=== PATIENT | male | born 1945 | race Caucasian/White ===

== ENCOUNTER 2016-09-12 03:51 | Inpatient (IN) | payer OTHER, MEDICARE ==
[~2016-09-12] VITALS: Ht 180.3 cm; Wt 60.8 kg
[2016-09-12] MEDS ORDERED: SODIUM CHLORIDE 0.9% FLUSH 5 ML FLUSH IV FLUSH PRN (04:15)
[2016-09-12] MEDS ORDERED: MYLASUS2 PO (04:19)
[2016-09-12] MEDS ORDERED: TYLE325T PO (04:19)
[2016-09-12] MEDS ORDERED: BISA10SU3 RECTAL (04:19)
[2016-09-12] MEDS ORDERED: DOCU100C PO (04:19)
[2016-09-12] MEDS ORDERED: AMLO5TAB2 PO (04:19)
[2016-09-12] MEDS ORDERED: XARE15TA PO (04:19)
[2016-09-12] MEDS ORDERED: ACET650S4 RECTAL (04:19)
[2016-09-12] MEDS ORDERED: NYST1000 SWISH-SWAL (04:19)
[2016-09-12] MEDS ORDERED: LISI10TA3 PO (04:19)
[2016-09-12] MEDS ORDERED: SIMV10TA PO (04:19)
[2016-09-12] MEDS ORDERED: FAMO1TAB37 PO (04:19)
[2016-09-12 04:33] VITALS: BP 143/82; PULSE 60; RESP 18; TEMP 97.6; O2SAT 97
[2016-09-12 04:44] LABS: BACTERIA, URINE FEW /hpf; BLOOD, URINE MOD (NEG); CALCIUM OXALATE CRYSTALS,URINE OCC /hpf; COMMENT (UR) CATH-CULTURE IND; CULTURE IF INDICATED CATH CULTURE IND; GLUCOSE,URINE NEG (NEG); HYALINE CAST, URINE 2 /lpf (RARE); KETONE, URINE NEG (NEG); MUCUS URINE FEW /lpf (OCC); NITRITE,URINE POS (NEG); RENAL EPITHELIAL CELLS 23 /hpf; URINE COLOR YELLOW (YELLW/STRAW)
[2016-09-12 04:45] LABS: AUTOMATED NEUTROPHIL # 8.1 TH/MM3 (1.8-7.7); BASOPHIL % 0.3 % (0.0-2.0); EOSINOPHIL # 0.2 TH/MM3 (0-0.4); EOSINOPHIL % 1.9 % (0.0-4.0); HEMATOCRIT 38.4 % (39.0-51.0); HEMO FLAGS DIFF FINAL; LYMPH % 12.8 % (9.0-44.0); LYMPHOCYTE # 1.4 TH/MM3 (1.0-4.8); MEAN CELL VOLUME 100.9 FL (80.0-100.0); MEAN CORPUSCULAR HEMOGLOBIN 35.2 PG (27.0-34.0); MEAN CORPUSCULAR HGB CONC 34.9 % (32.0-36.0); MONO % 11.2 % (0.0-8.0); NEUT % 73.8 % (16.0-70.0); PLATELET COUNT 263 TH/MM3 (150-450); RED BLOOD COUNT 3.81 MIL/MM3 (4.50-5.90); RED CELL DISTRIBUTION WIDTH 12.6 % (11.6-17.2)
[2016-09-12 04:51] LABS: APTT (PATIENT) 26.3 SEC (24.3-30.1); PROTHROMBIN TIME - PATIENT 10.6 SEC (9.8-11.6)
[2016-09-12 04:52] VITALS: RESP 18; O2SAT 100
--- NOTE | 2016-09-12 04:58 | RADRPT ---
EXAM DATE/TIME: 09/12/2016 04:24 [facility] COMPARISON: No previous studies available for comparison. INDICATIONS : Shortness of breath. MEDICAL HISTORY : None. SURGICAL HISTORY : None. ENCOUNTER: Initial ACUITY: 1 day PAIN SCORE: Non-responsive. LOCATION: Bilateral chest FINDINGS: A single view of the chest demonstrates the lungs to be symmetrically aerated without evidence of mas s, infiltrate or effusion. The cardiomediastinal contours are unremarkable. Osseous structures are intact. CONCLUSION: No acute disease. Antonio Root MD on September 12, 2016 at 4:56 Board Certified Radiologist. This report was verified electronically.
--- NOTE | 2016-09-12 05:12 | RADRPT ---
EXAM DATE/TIME: 09/12/2016 04:33 [facility] COMPARISON: No previous studies available for comparison. INDICATIONS : Altered mental status. RADIATION DOSE: 39.10 CTDIvol (mGy) MEDICAL HISTORY : SAH. SURGICAL HISTORY : Craniotomy. ENCOUNTER: Initial ACUITY: 1 day PAIN SCALE: Non-responsive LOCATION: cranial TECHNIQUE: Multiple contiguous axial images were obtained of the head. Using automated exposure control and adj ustment of the mA and/or kV according to patient size, radiation dose was kept as low as reasonably a chievable to obtain optimal diagnostic quality images. FINDINGS: CEREBRUM: The ventricles are normal for age. No evidence of midline shift, mass lesion, hemorrhage or acute in farction. There is a moderate size arachnoid cyst along the anterior right temporal lobe in the middl e fossa. There is a large area of decreased attenuation involving the right frontal and parietal lobe s. There are low-attenuation chronic subdural hygromas left greater than right. POSTERIOR FOSSA: The cerebellum and brainstem are intact. The 4th ventricle is midline. The cerebellopontine angle i s unremarkable. EXTRACRANIAL: The visualized portion of the orbits is intact. SKULL: The calvaria is intact. No evidence of skull fracture. CONCLUSION: 1. 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 2. Large area of decreased attenuation involving the right frontal and parietal lobes which are nonsp ecific but most characteristic of an area of encephalomalacia. Comparison with old outside studies wo uld be helpful. 3. 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 4. Status post right frontal craniotomy. Antonoi Root MD on September 12, 2016 at 5:07 Board Certified Radiologist. This report was verified electronically.
[2016-09-12] MEDS ORDERED: cefTRIAXone INJ 1,000 MG in SODIUM CHLORIDE 0.9% INJ 100 ML IV ONE (05:15)
[2016-09-12 05:20] LABS: ALT (GPT) 105 U/L (12-78); ANION GAP 4 MEQ/L (5-15); AST (GOT) 39 U/L (15-37); BICARBONATE 32.9 MEQ/L (21.0-32.0); BLOOD UREA NITROGEN 28 MG/DL (7-18); CHLORIDE 111 MEQ/L (98-107); GLOMERULAR FILTRATION RATE 149 ML/MIN (>89); POTASSIUM 3.6 MEQ/L (3.5-5.1); SODIUM (NA) 148 MEQ/L (136-145)
[2016-09-12 05:24] LABS: ALKALINE PHOSPHATASE 125 U/L (45-117); TOTAL BILIRUBIN ADULT 0.3 MG/DL (0.2-1.0)
[2016-09-12 05:31] LABS: CREATINE KINASE 40 U/L (39-308)
--- NOTE | 2016-09-12 05:43 | PD ---
HPI Chief Complaint: Altered Mental Status Time Seen by Provider: 04:15 Travel History International Travel<30 days: No Contact w/Intl Traveler<30days: No Traveled to known affect area: No History of Present Illness HPI Patient is a 71-year-old male with history of recent intracranial hemorrhage. He was seen at [facility] and was discharged to rehabilitation facility on Friday. He comes from the rehabilitation facility because they said his mental status is changed. Per documentation from [facility], patient is nonverbal. He does try to say a few words that are incomprehensible. Per he seems to be at his baseline mental status. She says though she has noticed some blood in his stool. Patient is unable to provide any history. [facility] Past Medical History Hypertension: Yes Medical other: Yes (INTRACRAINAL HEMORRHAGE) Past Surgical History Other Surgery: Yes (CRANIECTOMY 08/22, PEG TUBE 07/2016) Social History Alcohol Use: No Tobacco Use: No Substance Use: No Allergies-Medications (Allergen,Severity, Reaction): Coded Allergies: No Known Allergies (Unverified , 09/12/16) Reported Meds & Prescriptions Reported Meds & Active Scripts Active Reported Acetaminophen Supp (Acetaminophen) 650 Mg Supp 650 Mg RECTAL Q3HR PRN Mylanta Liq (Yuuwmdzo-Hodgxufkt-Oylarcqacay Liq) 200-200-20 Mg/5 Ml Susp 30 Ml PO Q4HR PRN Take between meals or as directed. Shake well. Maximum 120 ml/24 hrs. Tylenol (Acetaminophen) 325 Mg Tab 325 Mg PO Q4H PRN Bisacodyl Supp (Bisacodyl) 10 Mg Supp 10 Mg RECTAL DAILY PRN Nystatin Liq 100,000 unit/ml Susp 6 Ml SWISH-SWAL QID Pepcid (Famotidine) 20 Mg Tab 20 Mg PO BID Docusate Sodium 100 Mg Cap 100 Mg PO BID Amlodipine (Amlodipine Besylate) 5 Mg Tab 5 Mg PO BID Xarelto (Rivaroxaban) 15 Mg Tab 15 Mg PO DAILY Simvastatin 10 Mg Tab 10 Mg PO DAILY Lisinopril 10 Mg Tab 10 Mg PO DAILY Review of Systems ROS Limitations: Clinical Condition Physical Exam Narrative GENERAL: Awake and alert, but nonverbal, in no acute distress SKIN: Focused skin assessment warm/dry. HEAD: Atraumatic. Normocephalic. EYES: Pupils equal and round. No scleral icterus. ENT: Mucous membranes pink and moist. NECK: Trachea midline. No JVD. CARDIOVASCULAR: Regular rate and rhythm. No murmur appreciated. RESPIRATORY: No accessory muscle use. Clear to auscultation. Breath sounds equal bilaterally. GASTROINTESTINAL: Abdomen soft, non-tender, nondistended. Blood present in the rectum. MUSCULOSKELETAL: No obvious deformities. No clubbing. No cyanosis. No edema. NEUROLOGICAL: Awake and alert, nonverbal. Left-sided facial droop and left arm and leg flaccidity. Patient does seem to try and follow commands. Data Data Last Documented VS Orders Electrocardiogram (09/12/16 04:15) Complete Blood Count With Diff (09/12/16 04:15) Comprehensive Metabolic Panel (09/12/16 04:15) Creatine Kinase (Cpk) (09/12/16 04:15) Prothrombin Time / Inr (Pt) (09/12/16 04:15) Act Partial Throm Time (Ptt) (09/12/16 04:15) Troponin I (09/12/16 04:15) Urinalysis - C+S If Indicated (09/12/16 04:15) Ua Includes Microscopic (09/12/16 04:15) Chest, Single Ap (09/12/16 04:15) Ct Brain W/O Iv Contrast(Rout) (09/12/16 04:15) Blood Glucose (09/12/16 04:15) Ecg Monitoring (09/12/16 04:15) Iv Access Insert/Monitor (09/12/16 04:15) Oximetry (09/12/16 04:15) Sodium Chloride 0.9% Flush (Ns Flush) (09/12/16 04:15) Type And Screen (09/12/16 04:15) Urine Culture (09/12/16 04:18) Ceftriaxone Inj (Rocephin Inj) (09/12/16 05:15) Admit Order (Ed Use Only) (09/12/16 ) Vital Signs (Adult) Q4H (09/12/16 05:43) Activity Oob With Assistance (09/12/16 05:43) [employer] Pro[employer] / Telemetry .CONTINUOUS (09/12/16 05:43) Sodium Chloride 0.9% Flush (Ns Flush) (09/12/16 05:45) Sodium Chloride 0.9% Flush (Ns Flush) (09/12/16 09:00) Pt Request For Service (09/12/16 05:43) Case Management Consult (09/12/16 05:43) Naloxone Inj (Narcan Inj) (09/12/16 05:45) Labs Laboratory Tests Test 09/12/16 04:18 Prothrombin Time 10.6 SEC Prothromb Time International 1.0 RATIO Ratio Activated Partial 26.3 SEC Thromboplast Time Sodium Level 148 MEQ/L Potassium Level 3.6 MEQ/L Chloride Level 111 MEQ/L Carbon Dioxide Level 32.9 MEQ/L Anion Gap 4 MEQ/L Blood Urea Nitrogen 28 MG/DL Creatinine 0.54 MG/DL Estimat Glomerular Filtration 149 ML/MIN Rate Random Glucose 115 MG/DL Calcium Level 8.7 MG/DL Total Bilirubin 0.3 MG/DL Aspartate Amino Transf 39 U/L (AST/SGOT) Alanine Aminotransferase 105 U/L (ALT/SGPT) Alkaline Phosphatase 125 U/L Total Creatine Kinase 40 U/L Troponin I 0.09 NG/ML Total Protein 6.2 GM/DL Albumin 2.2 GM/DL White Blood Count 11.0 TH/MM3 Red Blood Count 3.81 MIL/MM3 Hemoglobin 13.4 GM/DL Hematocrit 38.4 % Mean Corpuscular Volume 100.9 FL Mean Corpuscular Hemoglobin 35.2 PG Mean Corpuscular Hemoglobin 34.9 % Concent Red Cell Distribution Width 12.6 % Platelet Count 263 TH/MM3 Mean Platelet Volume 9.8 FL Neutrophils (%) (Auto) 73.8 % Lymphocytes (%) (Auto) 12.8 % Monocytes (%) (Auto) 11.2 % Eosinophils (%) (Auto) 1.9 % Basophils (%) (Auto) 0.3 % Neutrophils # (Auto) 8.1 TH/MM3 Lymphocytes # (Auto) 1.4 TH/MM3 Monocytes # (Auto) 1.2 TH/MM3 Eosinophils # (Auto) 0.2 TH/MM3 Basophils # (Auto) 0.0 TH/MM3 CBC Comment DIFF FINAL Differential Comment Urine Color YELLOW Urine Turbidity HAZY Urine pH 6.0 Urine Specific [place] 1.018 Urine Protein 30 mg/dL Urine Glucose (UA) NEG mg/dL Urine Ketones NEG mg/dL Urine Occult Blood MOD Urine Nitrite POS Urine Bilirubin NEG Urine Urobilinogen LESS THAN 2.0 MG/DL Urine Leukocyte Esterase LARGE Urine RBC 51 /hpf Urine WBC /hpf Urine WBC Clumps MOD Urine Renal Epithelial Cells 23 /hpf Urine Calcium Oxalate Crystals OCC /hpf Urine Amorphous Sediment RARE Urine Bacteria FEW /hpf Urine Hyaline Casts 2 /lpf Urine Mucus FEW /lpf Microscopic Urinalysis Comment CATH-CULTURE IND [facility] Medical Decision Making Medical Screen Exam Complete: Yes Emergency Medical Condition: Yes Interpretation(s) ECG shows sinus tachycardia at 105, frequent PVCs. Differential Diagnosis UTI versus pneumonia versus GI bleed versus ICH Narrative Course Patient is a 71-year-old male comes in from his rehabilitation facility due to change in mental status. Patient is nonverbal. Exam shows bright red blood per rectum. IV established, labs sent. Troponin is mildly elevated to 0.09. Hemoglobin is normal at 13.4. Urinalysis is positive for UTI. Patient given Rocephin for UTI. Given Protonix. Will be admitted for further management. Patient is a DNR. Diagnosis Primary Impression: GI bleed Qualified Code: K92.2 - Gastrointestinal hemorrhage, unspecified gastrointestinal hemorrhage type Additional Impression: UTI (urinary tract infection) Qualified Code: N30.00 - Acute cystitis without hematuria Admitting Information Admitting Physician Requests: Admit Condition: Stable Catherine Ortega MD September 12, 2016 05:43 GI bleed Qualified Code: K92.2 - Gastrointestinal hemorrhage, unspecified gastrointestinal hemorrhage type Additional Impression: UTI (urinary tract infection) Qualified Code: N30.00 - Acute cystitis without hematuria Admitting Information Admitting Physician Requests: Admit Condition: Stable Catherine Ortega MD September 12, 2016 05:43
[2016-09-12] MEDS ORDERED: NALOXONE HCL 0.4 MG/ML AMP IV PRN (05:45)
[2016-09-12 06:22] LABS: HEMATOCRIT 38.5 % (39.0-51.0); REVIEW FLAG FINAL
[2016-09-12 07:00] VITALS: BP 140/80; PULSE 112; RESP 17; O2SAT 98
[2016-09-12] MEDS ORDERED: PANTOPRAZOLE INJ 80 MG in SODIUM CHLORIDE 0.9% INJ 35 ML IV ONE (07:00)
--- NOTE | 2016-09-12 07:07 | HHI.HP ---
[facility] Primary Care Physician Allison Lynn MD (Vipin) Admission Diagnosis UTI, GI bleed Diagnoses: Chief Complaint: not able to give proper hx Travel History International Travel<30 Days: No Contact w/Intl Traveler <30 Da: No Traveled to Known Affected Are: No History of Present Illness History from patient's at the bedside, ER physician, and review of medical records from [facility]. Patient himself is awake and alert but has significant expressive aphasia and not able to give history. reported that patient was sent from the [facility] because the nurse noted the patient was not speaking like the way he used to. He was not able to answer yes or no questions. He was not able to pronounce the name of the nurse. Apparently he was previously able to do all this. 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 this trouble with speech and total noncommunicative state was new to him. Patient stated that she did notice blood in his stool about 2 days ago as well. She stated that she was also noticing some sediments in his urine Stuart catheter and she happened to mention close to the nursing staff there. She denies any nausea or vomiting or fever. She stated patient was having diarrhea for the past few days as well. About 4-5 times a day. She is unsure of his stool color. Patient's reported that patient was at [facility] from August 13, 2016 to September 06, 2016. He was then discharged to [facility]. He was managed there for intracranial bleed. She found him in the house on the ground. It wasn't sure whether he had an intracranial bleed which led him to fall versus whether his fall led to intracranial bleed. He underwent herniotomy on to August 21, 2016. His hospitalization was complicated by pulmonary embolism and lower extremity DVT which she described as the clot in lung close to his heart with possible compromise to his heart. Possibly she is describing right heart strain. She reported that at that time, she was the one who noticed that patient was hypoxic to the 70s on room air, with tachycardia in 130s. He was not discharged on oxygen. She stated that he was doing well without oxygen there. At present while in emergency room, patient is saturating 97% on 3 L nasal cannular. Review of Systems ROS Limitations: Altered Mental Status, Speech Impaired Not able to obtain review of system at all Past Family Social History Past Medical History History of hypertension Recent intracranial bleed on August 13, 2016. Status post craniotomy on July. Pulmonary embolism, with DVT during July 2016 hospitalizationwith what sounds like right heart strain from 's description. Currently on anticoagulation with Xarelto. Chronic anticoagulation on Xarelto History of prostate cancer status post prostatectomy Past Surgical History Prostatectomy Reported Medications Patient's medications [facility] is [facility] Allergies: Coded Allergies: No Known Allergies (Unverified , 09/12/16) Family History Patient's father had a stroke. Mother had some kind of cancer. Social History Denies smoking/alcohol abuse/drug abuse. He used to drink alcohol socially. Physical Exam Vital Signs Vital Signs Date Time Temp Pulse Resp B/P Pulse Ox O2 Delivery O2 Flow Rate FiO2 09/12/16 04:52 18 100 09/12/16 04:42 59 18 100 09/12/16 04:33 97.6 60 18 143/82 97 Physical Exam GENERAL: This is a well-nourished, well-developed patient, in no apparent distress. SKIN: No rashes, ecchymoses or lesions. Cool and dry. HEAD: Atraumatic. Normocephalic. No temporal or scalp tenderness. EYES: Pupils equal round and reactive. no scleral icterus. No injection or drainage. ENT: Nose without bleeding, purulent drainage or septal hematoma. Airway patent. NECK: Trachea midline. No JVD or lymphadenopathy. Supple, nontender, no meningeal signs. CARDIOVASCULAR: Regular rate and rhythm without murmurs, gallops, or rubs. RESPIRATORY: Clear to auscultation. Breath sounds equal bilaterally. No wheezes , rales, or rhonchi. GASTROINTESTINAL: Abdomen soft tenderness at right upper quadrant area, nondistended. No guarding. MUSCULOSKELETAL: Extremities without clubbing, cyanosis, or edema. No calf tenderness. NEUROLOGICAL: Awake and alert. Expressive aphasia. Left upper extremity and left lower extremity paralysis 0 out of 5. Laboratory Laboratory Tests Test 09/12/16 09/12/16 04:18 06:12 White Blood Count 11.0 Red Blood Count 3.81 Hemoglobin 13.4 13.3 Hematocrit 38.4 38.5 Mean Corpuscular Volume 100.9 Mean Corpuscular Hemoglobin 35.2 Mean Corpuscular Hemoglobin 34.9 Concent Red Cell Distribution Width 12.6 Platelet Count 263 Mean Platelet Volume 9.8 Neutrophils (%) (Auto) 73.8 Lymphocytes (%) (Auto) 12.8 Monocytes (%) (Auto) 11.2 Eosinophils (%) (Auto) 1.9 Basophils (%) (Auto) 0.3 Neutrophils # (Auto) 8.1 Lymphocytes # (Auto) 1.4 Monocytes # (Auto) 1.2 Eosinophils # (Auto) 0.2 Basophils # (Auto) 0.0 CBC Comment DIFF FINAL Differential Comment Prothrombin Time 10.6 Prothromb Time International 1.0 Ratio Activated Partial 26.3 Thromboplast Time Urine Color YELLOW Urine Turbidity HAZY Urine pH 6.0 Urine Specific [place] 1.018 Urine Protein 30 Urine Glucose (UA) NEG Urine Ketones NEG Urine Occult Blood MOD Urine Nitrite POS Urine Bilirubin NEG Urine Urobilinogen LESS THAN 2.0 Urine Leukocyte Esterase LARGE Urine RBC 51 Urine WBC Urine WBC Clumps MOD Urine Renal Epithelial Cells 23 Urine Calcium Oxalate Crystals OCC Urine Amorphous Sediment RARE Urine Bacteria FEW Urine Hyaline Casts 2 Urine Mucus FEW Microscopic Urinalysis Comment CATH-CULTURE IND Sodium Level 148 Potassium Level 3.6 Chloride Level 111 Carbon Dioxide Level 32.9 Anion Gap 4 Blood Urea Nitrogen 28 Creatinine 0.54 Estimat Glomerular Filtration 149 Rate Random Glucose 115 Calcium Level 8.7 Total Bilirubin 0.3 Aspartate Amino Transf 39 (AST/SGOT) Alanine Aminotransferase 105 (ALT/SGPT) Alkaline Phosphatase 125 Total Creatine Kinase 40 Troponin I 0.09 Total Protein 6.2 Albumin 2.2 Blood Type O POSITIVE Blood Bank Comment Date/Time Procedure Status Source Growth 09/12/16 04:18 Urine Culture Received Urine Catheterized Urine Pending Result Diagram: 09/12/1661109/12/16 0418 Imaging Last [address] 09/12/16 041 Signed Impressions: Service Date/Time: August 04:33 - CONCLUSION: 1. 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 2. Large area of decreased attenuation involving the right frontal and parietal lobes which are nonspecific but most characteristic of an area of encephalomalacia. Comparison with old outside studies would be helpful. 3. 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 4. Status post right frontal craniotomy. Antonio Root MD Chest X-Ray 09/12/16 0415 Signed Impressions: Service Date/Time: August 04:24 - CONCLUSION: No acute disease. Antonio Root MD Assessment and Plan Assessment and Plan Impression: Worsening expressive aphasiaetiology unclear. Multifactorial. Possibly related to acute infectious process such as UTI. However in this patient with recent intracranial bleed, anticoagulation use, would need to rule out intracranial pathology. UTIin patient with chronic indwelling Stuart. Possible GI bleed Diarrhearule out C. difficile colitis in a patient with recent hospitalization and antibiotics use Abdominal painetiology unclear. Possibly related to GI bleed/colitis. However patient kept pointing more towards the right upper quadrant. LFTs are also elevated. We'll rule out cholecystitis/appendicitis. Recent intracranial bleed on August 13, 2016. Status post craniotomy on July. Pulmonary embolism, with DVT during July 2016 hospitalizationwith what sounds like right heart strain from 's description. Currently on anticoagulation with Xarelto. Chronic anticoagulation on Xarelto Hypertension Plan: Seizure precautions. EEG in a.m. Start Keppra 500 mg IV every 12 hours. Per [facility] notes, patient was supposed to be on Keppra. However I do not see Prior at jail paperwork. Neurosurgery consult for further workup. Patient's head CT report personally reviewed. Moderate sized arachnoid cyst at right temporal area. Otherwise large area of encephalomalacia and prior craniotomy. Nothing by mouth. Aspiration precautions. Patient received Rocephin in ER for UTI. At present, given that patient was recently hospitalized, with also abdominal pain, would use Zosyn 4.5 g IV every 6 hours. Also check stool for C. difficile. Discontinue Stuart catheter. We'll watch for urinary retention. Patient's is not aware of patient having urinary retention. He did have prostate cancer for which he had prostatectomy. We'll give him trial of void. If there is evidence of retention, we'll reinsert new Stuart. Obtain CT abdomen and pelvis with by mouth and IV contrast. As to his recent PE and DVT, we will need to hold off on anticoagulation at this point due to possible GI bleed. Would obtain serial hemoglobin and hematocrits. GI consult. PPI drip. If there is no evidence of GI bleed, would need to restart back on anticoagulation. It is worrisome from the description that it seems as if patient had right heart strain with this episode of PE. Would obtain an echocardiogram to evaluate for this. Also consulted hematology for further opinion regarding anticoagulation. Patient and family would like to have aggressive physical therapy at [facility]. reported that this was the reason why they told ambulance personnel to bring him to [facility]. We'll consult rehabilitation medicine. DVT prophylaxisto start Lovenox once GI bleed is ruled out. Further choice per hematology. GI prophylaxis on pantoprazole. Code Status DNR. ER physician discussed with patient's in detail and had signed DNR papers with the . I have also verified this with patient's at bedside. Discussed Condition With Patient, his , ER physician, nursing staff Physician Certification 2 Midnight Certification Type: Admission for Inpatient Services Order for Inpatient Services The services are ordered in accordance with Medicare regulations or non- Medicare payer requirements, as applicable. In the case of services not specified as inpatient-only, they are appropriately provided as inpatient services in accordance with the 2-midnight benchmark. Estimated LOS (days): 4 days is the estimated time the patient will need to remain in the hospital, assuming treatment plan goals are met and no additional complications. Post-Hospital Plan: Inpatient Rehab Cyndee Kirk MD September 12, 2016 07:07
[2016-09-12] MEDS ORDERED: cloNIDine HCL 0.1 MG TAB PO PRN (07:15)
[2016-09-12] MEDS ORDERED: ALUMINUM/MAGNESIUM/SIMETH 30 ML CUP PO PRN (07:15)
[2016-09-12] MEDS ORDERED: ENALAPRILAT 1.25 MG/ML VIAL IV PRN (07:15)
[2016-09-12] MEDS ORDERED: ACETAMINOPHEN 325 MG TAB PO PRN (07:15)
[2016-09-12] MEDS ORDERED: DOCUSATE SODIUM 100 MG CAP PO PRN (07:15)
[2016-09-12] MEDS ORDERED: ONDANSETRON HCL 4 MG/2 ML VIAL IV PRN (07:15)
[2016-09-12] MEDS: PANTOPRAZOLE INJ 80 MG in SODIUM CHLORIDE 0.9% INJ 100 ML IV SCH ×2 (07:44→17:42)
[2016-09-12] MEDS: SODIUM CHLORIDE 0.9% FLUSH 10 ML FLUSH IV FLUSH SCH ×2 (07:45→21:49)
[2016-09-12] MEDS ORDERED: DIATRIZOATE MEGLUM/DIATRIZOATE SOD 9 ML CUP PO ONE (07:50)
[2016-09-12] MEDS: NYSTATIN SUSP 500,000 U/5 ML CUP SWISH-SWAL SCH ×4 (08:03→21:48)
[2016-09-12] MEDS ORDERED: DOCUSATE SODIUM 100 MG CAP G-TUBE PRN (08:45)
--- NOTE | 2016-09-12 08:50 | HHI.PR ---
Subjective Remarks Follow-up encephalopathy. Patient seen with , patient alert and tries to communicate and follow commands. He has baseline left-sided weakness and dysphasia. According to his , he is improved with his altered mental status but not at baseline. Discussed with RN. Outside records reviewed Objective Vitals Vital Signs Date Time Temp Pulse Resp B/P Pulse Ox O2 Delivery O2 Flow Rate FiO2 09/12/16 07:00 112 17 140/80 98 Room Air 09/12/16 04:52 18 100 09/12/16 04:42 59 18 100 09/12/16 04:33 97.6 60 18 143/82 97 I/O 09/11/16 09/11/16 09/11/16 09/12/16 09/12/16 09/12/16 07:00 15:00 23:00 07:00 15:00 23:00 Output Total 550 ml Balance -550 ml Output Urine Total 550 ml # Voids 0 Result Diagram: 09/12/16 0612 09/12/16 0418 Imaging Last Impressions Head CT 09/12/16414 Signed Impressions: Service Date/Time: August 04:33 - CONCLUSION: 1. 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 2. Large area of decreased attenuation involving the right frontal and parietal lobes which are nonspecific but most characteristic of an area of encephalomalacia. Comparison with old outside studies would be helpful. 3. 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 4. Status post right frontal craniotomy. Antonio Root MD Chest X-Ray 09/12/16414 Signed Impressions: Service Date/Time: August 04:24 - CONCLUSION: No acute disease. Antonio Root MD Objective Remarks GENERAL: This is a well-nourished, well-developed patient, in no apparent distress. SKIN: No rashes, ecchymoses or lesions. Cool and dry. HEAD: Atraumatic. Normocephalic. No temporal or scalp tenderness. EYES: Pupils equal round and reactive. no scleral icterus. No injection or drainage. ENT: Nose without bleeding, purulent drainage or septal hematoma. Airway patent. NECK: Trachea midline. No JVD or lymphadenopathy. Supple, nontender, no meningeal signs. CARDIOVASCULAR: Regular rate and rhythm without murmurs, gallops, or rubs. RESPIRATORY: Clear to auscultation. Breath sounds equal bilaterally. No wheezes , rales, or rhonchi. GASTROINTESTINAL: Abdomen soft no tenderness at right upper quadrant area, nondistended. No guarding. PEG in place MUSCULOSKELETAL: Extremities without clubbing, cyanosis, or edema. No calf tenderness. NEUROLOGICAL: Awake and alert. Expressive aphasia. Left facial droop. Left upper extremity and left lower extremity paralysis 0 out of 5. Procedures None A/P Problem List: (1) GI bleed ICD Code: K92.2 Status: Acute Assessment and Plan Worsening expressive aphasiaetiology unclear. Multifactorial. Possibly related to acute infectious process such as UTI. However in this patient with recent intracranial bleed, anticoagulation use, would need to rule out intracranial pathology. Seizure precautions. Consult neurosurgery regarding abnormal head CT. Obtain EEG. Continue Keppra UTIin patient with chronic indwelling Stuart. Discontinue Stuart catheter and start voiding trial. Agree with IV Zosyn and follow up culture. Monitor for urinary retention Possible GI bleed and serial hemoglobin and hematocrit. Transfuse if hemoglobin less than 8. PPI. Consult GI Diarrhearule out C. difficile colitis in a patient with recent hospitalization and antibiotics use. Obtain C. difficile. Lactinex if persistent diarrhea Abdominal painetiology unclear. Possibly related to GI bleed/colitis. However patient kept pointing more towards the right upper quadrant. LFTs are also elevated. We'll rule out cholecystitis/appendicitis. Obtain abdominal CT and hold statin for now Hypertension. Hold BP medications for now. Continue to monitor with as needed antihypertensives Recent intracranial bleed on August 13, 2016. Status post craniotomy on July. Pulmonary embolism, with DVT during July 2016 hospitalizationwith what sounds like right heart strain from 's description. Currently on anticoagulation with Xarelto which will be placed on hold secondary to possible GI bleed. Patient and aware risk of clotting but risks outweigh benefits of anticoagulation at this time. If there is no evidence of GI bleed, would need to restart back on anticoagulation. It is worrisome from the description that it seems as if patient had right heart strain with this episode of PE. Would obtain an echocardiogram to evaluate for this. Also consulted hematology for further opinion regarding anticoagulation. Patient and family would like to have aggressive physical therapy at [facility]. reported that this was the reason why they told ambulance personnel to bring him to [facility]. We'll consult rehabilitation medicine. DVT prophylaxisto start Lovenox once GI bleed is ruled out. Further choice per hematology. GI prophylaxis on pantoprazole. Continue tube feedings. Nothing by mouth for now pending swallowing evaluation Discharge Planning SNF vs [facility] Problem Qualifiers (1) GI bleed: Qualified Code: K92.2 - Gastrointestinal hemorrhage, unspecified gastrointestinal hemorrhage type Edwin Lu MD September 12, 2016 08:50
[2016-09-12] MEDS: levETIRAcetam INJ 500 MG in SODIUM CHLORIDE 0.9% INJ 100 ML IV SCH ×2 (09:02→22:08)
--- NOTE | 2016-09-12 09:35 | PD.CONS ---
HPI Service Neurosurgery Consult Requested By Dr Kirk Reason for Consult Postoperative care and follow up Primary Care Physician Allison Lynn MD (Vipin) History of Present Illness Mr Jovel underwent a recent craniotomy in [facility] for an intracranial bleed. He developed postoperative complications He is within the global postoperative period, currently followed by his neurosurgeon at another institution I recommend that Mr Jovel be transferred to [facility], to his neurosurgeon for his postoperative care He still is within the Global Postoperative Period, with post-surgical complications I will defer further care to the physician who performed his surgery Past Family Social History Allergies: Coded Allergies: No Known Allergies (Unverified , 09/12/16) Physical Exam Vital Signs Vital Signs Date Time Temp Pulse Resp B/P Pulse Ox O2 Delivery O2 Flow Rate FiO2 09/12/16 07:00 112 17 140/80 98 Room Air 09/12/16 04:52 18 100 09/12/16 04:42 59 18 100 09/12/16 04:33 97.6 60 18 143/82 97 Laboratory Laboratory Tests Test 09/12/16 09/12/16 04:18 06:12 White Blood Count 11.0 Red Blood Count 3.81 Hemoglobin 13.4 13.3 Hematocrit 38.4 38.5 Mean Corpuscular Volume 100.9 Mean Corpuscular Hemoglobin 35.2 Mean Corpuscular Hemoglobin 34.9 Concent Red Cell Distribution Width 12.6 Platelet Count 263 Mean Platelet Volume 9.8 Neutrophils (%) (Auto) 73.8 Lymphocytes (%) (Auto) 12.8 Monocytes (%) (Auto) 11.2 Eosinophils (%) (Auto) 1.9 Basophils (%) (Auto) 0.3 Neutrophils # (Auto) 8.1 Lymphocytes # (Auto) 1.4 Monocytes # (Auto) 1.2 Eosinophils # (Auto) 0.2 Basophils # (Auto) 0.0 CBC Comment DIFF FINAL Differential Comment Prothrombin Time 10.6 Prothromb Time International 1.0 Ratio Activated Partial 26.3 Thromboplast Time Urine Color YELLOW Urine Turbidity HAZY Urine pH 6.0 Urine Specific [place] 1.018 Urine Protein 30 Urine Glucose (UA) NEG Urine Ketones NEG Urine Occult Blood MOD Urine Nitrite POS Urine Bilirubin NEG Urine Urobilinogen LESS THAN 2.0 Urine Leukocyte Esterase LARGE Urine RBC 51 Urine WBC Urine WBC Clumps MOD Urine Renal Epithelial Cells 23 Urine Calcium Oxalate Crystals OCC Urine Amorphous Sediment RARE Urine Bacteria FEW Urine Hyaline Casts 2 Urine Mucus FEW Microscopic Urinalysis Comment CATH-CULTURE IND Sodium Level 148 Potassium Level 3.6 Chloride Level 111 Carbon Dioxide Level 32.9 Anion Gap 4 Blood Urea Nitrogen 28 Creatinine 0.54 Estimat Glomerular Filtration 149 Rate Random Glucose 115 Calcium Level 8.7 Total Bilirubin 0.3 Aspartate Amino Transf 39 (AST/SGOT) Alanine Aminotransferase 105 (ALT/SGPT) Alkaline Phosphatase 125 Total Creatine Kinase 40 Troponin I 0.09 Total Protein 6.2 Albumin 2.2 Blood Type O POSITIVE Antibody Screen NEGATIVE Blood Bank Comment Date/Time Procedure Status Source Growth 09/12/16 04:18 Urine Culture Received Urine Catheterized Urine Pending Result Diagram: 09/12/16 0612 09/12/16 0418 Gómez Stevenson MD September 12, 2016 09:35
[2016-09-12 10:00] VITALS: BP 117/71; PULSE 104; RESP 15; O2SAT 99
[2016-09-12] MEDS: PIPERACIL-TAZO 4.5 GM PREMIX 100 ML IV SCH ×3 (10:54→21:49)
[2016-09-12] MEDS ORDERED: ACETAMINOPHEN 325 MG TAB G-TUBE PRN (11:15)
--- NOTE | 2016-09-12 11:59 | RADRPT ---
EXAM DATE/TIME: 09/12/2016 11:26 [place] COMPARISON: No previous studies available for comparison. INDICATIONS : Blood in stool. ORAL CONTRAST: Prescribed oral contrast ingested. RADIATION DOSE: 9.43 CTDIvol (mGy) MEDICAL HISTORY : Carcinoma, prostate. Hypertension. SURGICAL HISTORY : Prostatectomy. ENCOUNTER: Initial ACUITY: 2 days PAIN SCALE: Non-responsive LOCATION: Abdomen TECHNIQUE: Volumetric scanning of the abdomen and pelvis was performed. Using automated exposure control and ad justment of the mA and/or kV according to patient size, radiation dose was kept as low as reasonably achievable to obtain optimal diagnostic quality images. FINDINGS: LOWER LUNGS: The visualized lower lungs are clear. LIVER: Homogeneous density without lesion. There is no dilation of the biliary tree. No calcified gallston es. SPLEEN: Normal size without lesion. PANCREAS: Within normal limits. KIDNEYS: Normal in size and shape. There is no mass, or hydronephrosis. 2 mm stone upper pole left kidney ADRENAL GLANDS: Within normal limits. VASCULAR: There is no aortic aneurysm. BOWEL/MESENTERY: The rectum is distended with stool . Surgical clips throughout the pelvis . The stomach, small bowel, and colon demonstrate no acute abnormality. There is no free intraperitoneal air or fluid. ABDOMINAL WALL: Within normal limits. RETROPERITONEUM: There is no lymphadenopathy. BLADDER: No wall thickening or mass. REPRODUCTIVE: Within normal limits. INGUINAL: There is no lymphadenopathy or hernia. MUSCULOSKELETAL: Within normal limits for patient age. CONCLUSION: Gallbladder is unremarkable. I cannot identify a normal or abnormal appendix. The rectum is distended with stool without wall thickening or mass. Previous pelvic surgical clips. Lawrence Mckeon MD on September 12, 2016 at 11:55 Board Certified Radiologist. This report was verified electronically.
--- NOTE | 2016-09-12 12:09 | PD.CONS ---
HPI History of Present Illness This is a 71 year old [gentleman] who presented to the ER this morning referred here from [facility] for change in mental status, found to have UTI. Pt nonverbal, at bedside giving hx. 2 d ago his noticed his stool was reddish brown but formed. She was told that staff noticed "little bit blood" in stool and this morning she saw BRBPR with clots, continually oozing. Currently there is small amt dark red blood staining his diaper. He has PEG tube and per his last TF would have been 0300 this morning and he's been NPO since last night. This has never happened before. Last cscope 5 years ago, findings inc polyps. No n/v. Pt unable to say if he has pain but had been indicating region of LLQ, per . Pt is s/p craniotoly 08/21/16 for spontaneous hemorrhage at [facility]. 1 week later he DVT, PE, has been xarelto since september 11, last had xarelto yesterday. PFSH Past Medical History History of hypertension Recent intracranial bleed on August 13, 2016. Status post craniotomy on July. Pulmonary embolism, with DVT during July 2016 hospitalizationwith what sounds like right heart strain from 's description. Currently on anticoagulation with Xarelto. Chronic anticoagulation on Xarelto History of prostate cancer status post prostatectomy Past Surgical History Prostatectomy Crani 07/2016 Coded Allergies: No Known Allergies (Unverified , 09/12/16) Medications Current Medications Medications (Trade) Dose Ordered Sig/Jacek Route PRN Reason Start Time Stop Time Status Last Admin Dose Admin Sodium Chloride (NS Flush) 2 ml UNSCH PRN IV FLUSH FLUSH AFTER USING IV ACCESS 09/12/16 05:45 Sodium Chloride (NS Flush) 2 ml BID IV FLUSH 09/12/16 09:00 Naloxone HCl 0.4 mg 0.4 mg UNSCH PRN IV SEE LABEL COMMENTS 09/12/16 05:45 Pantoprazole Sodium/Sodium Chloride (Protonix Inj/NS Inj) 100 ml @ 10 mls/hr Q10H IV 09/12/16 07:00 09/12/16 07:44 Ondansetron HCl (Zofran Inj) 4 mg Q6H PRN IV NAUSEA 09/12/16 07:15 Enalaprilat (Vasotec Inj) 1.25 mg Q6H PRN IV SBP> OR = 180, DBP> OR = 100 09/12/16 07:15 Nystatin 6 ml 6 ml QID SWISH-SWAL 09/12/16 09:00 09/26/16 08:59 Levetriacetam 500 mg/Sodium Chloride 105 ml @ 420 mls/hr Q12HR IV 09/12/16 09:00 09/12/16 09:02 Piperacillin Sod/ Tazobactam Sod (Zosyn 4.5 Gm Premix) 100 ml @ 200 mls/hr Q6H IV 09/12/16 10:00 09/12/16 10:54 Acetaminophen (Tylenol) 650 mg Q4H PRN G-TUBE Temp > 100.4 09/12/16 11:15 Al Hydrox/Mg Hydrox/Simethicone (Mag-Al Plus Susp Liq) 30 ml Q6H PRN G-TUBE DYSPEPSIA 09/12/16 13:15 Clonidine (Catapres) 0.1 mg Q6H PRN G-TUBE SBP> OR = 180, DBP> OR = 100 09/12/16 13:15 Docusate Sodium 100 mg 100 mg BID PRN G-TUBE CONSTIPATION 09/12/16 08:45 Potassium Chloride/Sodium Chloride (1/2 NS + KCl 20 Meq Inj) 1,000 ml @ 84 mls/hr [id number] IV 09/12/16 11:30 Family History Patient's father had a stroke. Mother had some kind of cancer. Social History Denies smoking/alcohol abuse/drug abuse. He used to drink alcohol socially. Review of Systems ROS pt noncontributory GI Exam Vitals I&O Vital Signs Date Time Temp Pulse Resp B/P Pulse Ox O2 Delivery O2 Flow Rate FiO2 09/12/16 10:00 104 15 117/71 99 Room Air 09/12/16 07:00 112 17 140/80 98 Room Air 09/12/16 04:52 18 100 09/12/16 04:42 59 18 100 09/12/16 04:33 97.6 60 18 143/82 97 I/O 09/11/16 09/11/16 09/11/16 09/12/16 09/12/16 09/12/16 07:00 15:00 23:00 07:00 15:00 23:00 Output Total 550 ml Balance -550 ml Output Urine Total 550 ml # Voids 0 # Bowel Movements 1 Imaging Last Impressions Head CT 09/12/16414 Signed Impressions: Service Date/Time: August 04:33 - CONCLUSION: 1. 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 2. Large area of decreased attenuation involving the right frontal and parietal lobes which are nonspecific but most characteristic of an area of encephalomalacia. Comparison with old outside studies would be helpful. 3. 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 4. Status post right frontal craniotomy. Antonio Root MD Chest X-Ray 09/12/16414 Signed Impressions: Service Date/Time: August 04:24 - CONCLUSION: No acute disease. Antonio Root MD Laboratory Test 09/12/16 09/12/16 04:18 06:12 White Blood Count 11.0 TH/MM3 Red Blood Count 3.81 MIL/MM3 Hemoglobin 13.4 GM/DL 13.3 GM/DL Hematocrit 38.4 % 38.5 % Mean Corpuscular Volume 100.9 FL Mean Corpuscular Hemoglobin 35.2 PG Mean Corpuscular Hemoglobin 34.9 % Concent Red Cell Distribution Width 12.6 % Platelet Count 263 TH/MM3 Mean Platelet Volume 9.8 FL Neutrophils (%) (Auto) 73.8 % Lymphocytes (%) (Auto) 12.8 % Monocytes (%) (Auto) 11.2 % Eosinophils (%) (Auto) 1.9 % Basophils (%) (Auto) 0.3 % Neutrophils # (Auto) 8.1 TH/MM3 Lymphocytes # (Auto) 1.4 TH/MM3 Monocytes # (Auto) 1.2 TH/MM3 Eosinophils # (Auto) 0.2 TH/MM3 Basophils # (Auto) 0.0 TH/MM3 CBC Comment DIFF FINAL Differential Comment Prothrombin Time 10.6 SEC Prothromb Time International 1.0 RATIO Ratio Activated Partial 26.3 SEC Thromboplast Time Urine Color YELLOW Urine Turbidity HAZY Urine pH 6.0 Urine Specific [place] 1.018 Urine Protein 30 mg/dL Urine Glucose (UA) NEG mg/dL Urine Ketones NEG mg/dL Urine Occult Blood MOD Urine Nitrite POS Urine Bilirubin NEG Urine Urobilinogen LESS THAN 2.0 MG/DL Urine Leukocyte Esterase LARGE Urine RBC 51 /hpf Urine WBC /hpf Urine WBC Clumps MOD Urine Renal Epithelial Cells 23 /hpf Urine Calcium Oxalate Crystals OCC /hpf Urine Amorphous Sediment RARE Urine Bacteria FEW /hpf Urine Hyaline Casts 2 /lpf Urine Mucus FEW /lpf Microscopic Urinalysis Comment CATH-CULTURE IND Sodium Level 148 MEQ/L Potassium Level 3.6 MEQ/L Chloride Level 111 MEQ/L Carbon Dioxide Level 32.9 MEQ/L Anion Gap 4 MEQ/L Blood Urea Nitrogen 28 MG/DL Creatinine 0.54 MG/DL Estimat Glomerular Filtration 149 ML/MIN Rate Random Glucose 115 MG/DL Calcium Level 8.7 MG/DL Total Bilirubin 0.3 MG/DL Aspartate Amino Transf 39 U/L (AST/SGOT) Alanine Aminotransferase 105 U/L (ALT/SGPT) Alkaline Phosphatase 125 U/L Total Creatine Kinase 40 U/L Troponin I 0.09 NG/ML Total Protein 6.2 GM/DL Albumin 2.2 GM/DL Blood Type O POSITIVE Antibody Screen NEGATIVE Blood Bank Comment Date/Time Procedure Status Source Growth 09/12/16 04:18 Urine Culture Received Urine Catheterized Urine Pending Physical Examination GENERAL: pt grabbing at pascual HEENT: normocephalic; atraumatic; no jaundice CHEST: CTA CARDIAC: RRR ABDOMEN: Soft, nondistended, nontender; no hepatosplenomegaly; bowel sounds are present in all four quadrants. PEG site clean. sm amt dark red blood staining diaper EXTREMITIES: No clubbing, cyanosis, or edema. SKIN: Normal; no rash; no jaundice. [employer]: pt non verbal, confused Assessment and Plan Plan ASSESSMENT - lower GIB - 2 d ago his noticed his stool was reddish brown but formed, this morning significant amt BRBPR with clots, continually oozing. Currently there is small amt dark red blood staining his diaper. HH 13.3, 38.5. was on xarelto till yesterday, s/p crani 08/21/16 and had PE, DVT after PLAN - colonoscopy in am - obtain consents - clears today - NPO after midnight - Mg Citrate and dulcolax prep - monitor HH - further recommendations based on results above This pt seen by myself and Dr Maldonado and this note is written on his behalf. Elvie MoralesP September 12, 2016 12:09
--- NOTE | 2016-09-12 12:17 | EC ---
Study Study Date:09/12/2016 STUDY CONCLUSIONS SUMMARY - Procedure narrative: Transthoracic echocardiography. Image quality was poor. The study was technically limited due to poor acoustic window availability. Scanning was performed from the parasternal, apical, and subcostal acoustic windows. - Left ventricle: The cavity size was normal. Wall thickness was normal. Systolic function was hyperdynamic. The estimated ejection fraction was in the range of 65% to 70%. Wall motion was normal; there were no regional wall motion abnormalities. - Right ventricle: Not well visualized. The cavity size was at the upper limits of normal. Wall thickness was normal. If LV function is below 40, please consider prescribing an ACEI or ARB or document rationale for non-use. PROCEDURE DATA STUDY STATUS: Elective. Procedure: Transthoracic echocardiography. Image quality was poor. The study was technically limited due to poor acoustic window availability. Scanning was performed from the parasternal, apical, and subcostal acoustic windows. Study completion: The patient tolerated the procedure well. Transthoracic echocardiography. M-mode, complete 2D, complete spectral Doppler, and color Doppler. Height: Height: 71in. Weight: Weight: 151.7lb. Body mass index: BMI: 21.2kg/m^2. Body surface area: BSA: 1.88m^2. Patient status: Inpatient. CARDIAC ANATOMY LEFT VENTRICLE: The cavity size was normal. Wall thickness was normal. Systolic function was hyperdynamic. The estimated ejection fraction was in the range of 65% to 70%. Wall motion was normal; there were no regional wall motion abnormalities. AORTIC VALVE: Trileaflet; normal thickness leaflets. Doppler: Transvalvular velocity was within the normal range. There was no stenosis. No regurgitation. AORTA: Aortic root: The aortic root was normal in size. MITRAL VALVE: Structurally normal valve. Doppler: Transvalvular velocity was within the normal range. There was no evidence for stenosis. No regurgitation. LEFT ATRIUM: The atrium was normal in size. RIGHT VENTRICLE: Not well visualized. The cavity size was at the upper limits of normal. Wall thickness was normal. PULMONIC VALVE: Doppler: Transvalvular velocity was within the normal range. There was no evidence for stenosis. No regurgitation. TRICUSPID VALVE: Structurally normal valve. Doppler: Transvalvular velocity was within the normal range. No regurgitation. PULMONARY ARTERY: The main pulmonary artery was normal-sized. Systolic pressure was within the normal range. RIGHT ATRIUM: The atrium was normal in size. PERICARDIUM: There was no pericardial effusion. SYSTEMIC VEINS: Inferior vena cava: The vessel was normal in size. Patient weight: 151.7lb _Ejection fraction:_ 65-75% _Fractional shortening:_ 32% up to 5Kg 5-11.5Kg 11.6-22.9Kg 23-45Kg 45-57Kg Aortic Root 7-13 <17 13-22 17-27 17-27 LA diam 6-13 <23 24-38 33-47 37-40 RVID 10-17 7-15 7-15 7-18 8-17 LVIDd 12-22 <32 24-38 33-47 37-40 LVPW 2-4 3-6 5-7 6-8 7-8 IVS 2-4 3-6 5-7 6-8 7-8 BASIC MEASUREMENTS ADULT NORMAL Left ventricle LV internal dimension, ED, chordal level, *27.9 mm 43-52 PLAX LV internal dimension, ES, chordal level, *14.2 mm 23-38 PLAX Fractional shortening, chordal level, PLAX 49 % >29 LV posterior wall thickness, ED 12.4 mm IVS/LVPW ratio, ED 0.99 <1.3 Ventricular septum Septal thickness, ED 12.3 mm Aortic valve Leaflet separation 24 mm 15-26 Right ventricle RV internal dimension, ED, PLAX 21.4 mm 19-38 BASIC MEASUREMENTS ADULT NORMAL Aortic valve Leaflet separation 24 mm 15-26 Aorta Root diameter, ED *40 mm 20-37 DOPPLER MEASUREMENTS ADULT NORMAL Pulmonic valve Peak velocity, S 148 cm/s LEGEND: Mean values are shown as u=mean value. Asterisk (*) lees values outside specified normal range. Prepared and signed by Lawrence Reina [id number]
[2016-09-12] MEDS ORDERED: ALUMINUM/MAGNESIUM/SIMETH 30 ML CUP G-TUBE PRN (13:15)
[2016-09-12] MEDS ORDERED: cloNIDine HCL 0.1 MG TAB G-TUBE PRN (13:15)
[2016-09-12] MEDS: 1/2 NS + KCL 20 MEQ INJ 1,000 ML IV SCH (13:17)
[2016-09-12] MEDS ORDERED: ACETAMINOPHEN/HYDROcodone 325 MG/5 MG TAB G-TUBE PRN (13:30)
[2016-09-12] MEDS ORDERED: MORPHINE SULFATE 4 MG/ML INJ IV PRN ×3 (13:30)
[2016-09-12] MEDS ORDERED: ACETAMINOPHEN/HYDROcodone 325 MG/7.5 MG TAB G-TUBE PRN (13:30)
--- NOTE | 2016-09-12 13:38 | MG ---
cc: Les Lab No: [id number] Date: 09/12/2016 Age: Sex: M Race: TEST NUMBER [id number] TECHNIQUE A 17-channel EEG. DESCRIPTION The background rhythm reveals initially slowing in the theta range at roughly 6 Hz amplitude, 20-30 microvolts. This occurs during drowsiness and sleep. There are no lateralizing features, no epileptiform discharges present. Occasional muscle artifact is seen. Later in the tracing there does appear to be an alpha rhythm during more wakefulness. Photic results in a poor driving response. INTERPRETATION There is generalized slowing in the EEG which I suspect is probably related to the drowsy state. No lateralizing features or epileptic features identified. MD DARRELL Brown/DONNA /1:24 PM /1:32 PM
--- NOTE | 2016-09-12 13:46 | EKG ---
Date Performed: 09/12/2016 Time Performed: 05:07:50 PTAGE: 71 years EKG: SINUS TACHYCARDIA WITH FREQUENT VENTRICULAR PREMATURE COMPLEXES INDETERMINATE AXIS LOW QRS VOLTAGE IN EXTREMITY LEADS ABNORMAL RHYTHM ECG NO PREVIOUS TRACING DOCTOR: Cortez Bhandari Interpretating Date/Time 09/12/2016 13:42:57
[2016-09-12 15:59] VITALS: BP 118/86; PULSE 98; RESP 19; TEMP 96.2; O2SAT 99
[2016-09-12] MEDS ORDERED: MAGNESIUM CITRATE SOLN 300 ML BTL PO ONE ×2 (16:00→18:00)
[2016-09-12] MEDS ORDERED: cefTRIAXone INJ 1,000 MG in SODIUM CHLORIDE 0.9% INJ 100 ML IV SCH (17:00)
[2016-09-12] MEDS ORDERED: BISACODYL EC 5 MG TABEC PO ONE (19:00)
[2016-09-12 20:00] VITALS: BP 115/72; PULSE 97; RESP 16; TEMP 99.5; O2SAT 96
--- NOTE | 2016-09-12 21:38 | MB ---
cc: MIRTA SANDOVAL MD,MD BALDO DATE OF CONSULTATION: 09/12/2016 HEMATOLOGY/ONCOLOGY CONSULTATION NOTE DATE OF : 1945 [address] Baldo Lynn CONSULT REQUESTED BY The Hospitalist Service. REASON FOR CONSULTATION Assistance in management of anticoagulation in a patient with bright red blood per rectum who had been on anticoagulation with Xarelto. He was on Xarelto because he suffered a pulmonary embolus about three weeks ago and was also found to have a lower extremity deep venous thrombosis. Additional complicating factors include an intracranial hemorrhage which was discovered in mid July of 2016 approximately a [id number] prior to the pulmonary emboli. The intracranial bleed had to be evacuated. CHIEF COMPLAINT Mr. Jovel is nonverbal. He is unable to communicate. The patient's is at bedside and she communicates the history very thoroughly. HISTORY OF PRESENT ILLNESS Mr. Jovel is a very pleasant 71-year-old male who was in his usual excellent state of health up until 08/07/2016 I believe. The patient was found at home on the floor unable to speak by his after she returned home from work that day. The patient was taken to [facility] where imaging studies per the patient's revealed a collection of blood on the surface of the brain. The patient was initially on observation as recommended by his neurosurgeon Dr. Mclain. About three days later, the patient's neurologic status worsened and he was operated on and the blood clot was evacuated. I do not have the details of the surgical procedure performed nor do I have details of the initial imaging studies or followup scans at [facility]. Following evacuation of the blood clot, the patient remained hospitalized and per the patient's was improving from a neurologic standpoint, specifically his speech was improving however he continued to have near flaccid paralysis of his left upper and lower extremity. While recovering from surgery, the patient developed sudden onset difficulty breathing, he underwent CT imaging of the chest and was found to have pulmonary embolus. He was also found to have lower extremity deep venous thrombosis. Per the patient's , the patient was initiated on anticoagulation initially with heparin and then was switched over to Xarelto and discharged to rehab. While at rehab, she began to notice over the past three days "ilya colored stool" and on the day prior to admission the patient had lia streaking of blood in the stool. This however was not the reason for him being sent over to the hospital. The patient was sent over to the hospital because he was found to be less responsive and increasingly altered from a mentation standpoint by the nursing staff. He was transferred to [facility] and underwent imaging studies of the head. Head CT scan performed on 09/12/2016 revealed a moderate-sized arachnoid cyst along the anterior right temporal lobe. A large area of decreased attenuation involving the right frontal and parietal lobes were also identified, these were most characteristic of encephalomalacia. 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 Status post right frontal craniotomy. Due to the history of blood in the stool, the patient was taken off of Xarelto and he is currently awaiting a colonoscopy/GI evaluation. PAST MEDICAL HISTORY 1. Intracranial hemorrhage. 2. Personal history of tobaccoism. 3. History of pulmonary embolism and deep venous thrombosis in July of 2016. 4. Remote history of prostate carcinoma treated with prostatectomy. PAST SURGICAL HISTORY 1. Prostatectomy. 2. Craniotomy. 3. PEG tube placement in July of 2016. FAMILY HISTORY Father had a stroke, mother had cancer. SOCIAL HISTORY The patient was smoker. No history of alcohol abuse. He lived at home with his . 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 ALLERGIES NO KNOWN DRUG ALLERGIES. CURRENT INPATIENT MEDICATIONS 1. Half-normal saline 84 cc/hr. 2. Keppra 500 mg IV q.12 hours. 3. Pantoprazole 40 mg IV q.8 hours. 4. Zosyn 4.5 grams IV q.6 hours. 5. Hydrocodone/acetaminophen 5/325 q.4 hours as needed for pain. 6. Milk of magnesia 30 mL via G-tube q.6 hours. 7. Colace 20 mg p.o. x1. 8. Clonidine 0.1 mg via PEG tube every 6 hours. 9. Magnesium citrate 300 mL p.o. x1. 10. Nystatin 6 mL swish and swallow q.i.d. REVIEW OF SYSTEMS Could not obtain. The patient's however reports change in mentation, blood per rectum, left-sided paralysis. PHYSICAL EXAMINATION VITAL SIGNS: Temperature 96.2 degrees Fahrenheit, heart rate 98 beats per minute, blood pressure is 118/86, O2 sats are 99% on room air. GENERAL APPEARANCE: Mr. Jovel is an elderly male, he is sitting up in bed, his is at bedside. He appears to track, he is almost completely nonverbal. HEENT: Head with a well-healed craniotomy incision along the right side of the frontotemporal region. Oral Exam: A thick white coating on his tongue with a yellow tinge. NECK EXAM: No palpable cervical or supraclavicular lymphadenopathy. RESPIRATORY EXAM: Decreased bibasilar breath sounds, poor inspiratory effort. No rhonchi or wheezes or crepitus. CARDIOVASCULAR: Regular rate and rhythm. S1 and S2. No obvious murmurs, rubs or gallops. ABDOMINAL EXAM: Thin belly, PEG tube in place, soft, nontender, nondistended. No palpable organ enlargement. LOWER EXTREMITIES: No pretibial edema. No calf tenderness. LOTTERIES AGENT: Flaccid paralysis of the left upper and lower extremities, general weakness of the right upper and lower extremities. SKIN EXAMINATION: Some bruising but no active bleeding. He has a Stuart catheter in place. LABORATORY FINDINGS Chemistries dated 09/12/2016: Sodium 148, potassium 3.6, chloride 111, bicarb 33, BUN 28, creatinine 0.54, EGFR 149, random glucose 115, calcium 8.7, total bilirubin 0.3, AST 39, ALT 105, alkaline phosphatase 125, albumin 2.2. CBC: WBC count 11, hemoglobin 13.4 g/dL, hematocrit 38.4%, MCV 109, platelet count 263, absolute neutrophil count 8.1, absolute lymphocyte count 1.4. Coags: PT 10.6, INR 1, PTT 26.3. IMAGING STUDIES CT scan of the abdomen dated 09/12/2016: Gallbladder unremarkable, rectum is distended with a large amount of stool, pelvic surgical clips. Head CT scan: 1. Status post right frontal craniotomy. 2. Chronic subdural hygromas. 3. Large area of decreased attenuation involving the right frontal lobe and parietal lobe which are nonspecific but most characteristic of an encephalomalacia. 4. Moderate-sized arachnoid cyst along the anterior right temporal lobe. ASSESSMENT Mr. Jovel is a 68-year-old man who recently suffered intracranial hemorrhage which appeared to be spontaneous. He eventually required evacuation of the hematoma surgically which was performed in mid July of 2016. About a week postop he developed pulmonary embolus with resultant respiratory distress, this was associated with a deep venous thrombosis of the lower extremity. He was eventually initiated on therapeutic anticoagulation (as the describes initial heparin followed by Xarelto). The patient was eventually discharged to a nursing facility where he developed some ilya colored stool and bright red blood per rectum, this was in the context of severe constipation. He was transferred to [facility] due to altered mentation and worsening expressive aphasia. Since admission he has undergone CT scans of his head which were grossly abnormal. Comparative scans from prior were not readily available. The hematology service has been asked to see this patient to help manage his anticoagulation going forward given the competing indications, i.e., recent intracranial hemorrhage, [id number] lower GI bleeding and indication for therapeutic anticoagulation, i.e., pulmonary embolus. RECOMMENDATIONS 1. Anticoagulation: I would recommend holding anticoagulation at the present time. At least until the patient has undergone some form of GI workup. It is my opinion that his bleeding is likely secondary to the massive amount of stool in his rectum, this man has a fecalith measuring 9 x 9 cm in the sigmoid rectum. This could certainly cause the amount of bleeding the patient's describes. He likely requires some form of evacuation of this massive fecalith. Once he has been cleared by GI, I would recommend resumption of anticoagulation whilst keeping his bowels moving with the appropriate GI regimen. Anticoagulation in this case may consist of either Xarelto or Eliquis or Lovenox. I would suggest consideration of Lovenox once he is cleared by GI given the relatively short half-life of Lovenox and availability of reversal factors. There is some talk about the patient being transferred to [facility] in [facility] so he may be reevaluate by his operating neurosurgeon. MD TAMMIE Yost/JOHANNA /7:02 PM /8:40 PM
[2016-09-13] VITALS (7 sets, daily range): BP systolic 117–148; BP diastolic 75–95; PULSE 94–110; RESP 16–19; TEMP 95.3–99.5; O2SAT 94–97
[2016-09-13] MEDS: PANTOPRAZOLE INJ 80 MG in SODIUM CHLORIDE 0.9% INJ 100 ML IV SCH ×2 (03:03→13:00)
[2016-09-13] MEDS: 1/2 NS + KCL 20 MEQ INJ 1,000 ML IV SCH ×2 (03:03→09:39)
[2016-09-13 03:20] LABS: REVIEW FLAG FINAL
[2016-09-13] MEDS: PIPERACIL-TAZO 4.5 GM PREMIX 100 ML IV SCH ×4 (03:54→22:38)
[2016-09-13 07:31] LABS: AUTOMATED NEUTROPHIL # 8.3 TH/MM3 (1.8-7.7); BASOPHIL % 0.3 % (0.0-2.0); EOSINOPHIL # 0.1 TH/MM3 (0-0.4); EOSINOPHIL % 0.7 % (0.0-4.0); HEMATOCRIT 38.6 % (39.0-51.0); HEMO FLAGS DIFF FINAL; LYMPH % 16.1 % (9.0-44.0); LYMPHOCYTE # 1.8 TH/MM3 (1.0-4.8); MEAN CELL VOLUME 101.3 FL (80.0-100.0); MEAN CORPUSCULAR HEMOGLOBIN 34.3 PG (27.0-34.0); MEAN CORPUSCULAR HGB CONC 33.9 % (32.0-36.0); MONO % 7.8 % (0.0-8.0); NEUT % 75.1 % (16.0-70.0); PLATELET COUNT 275 TH/MM3 (150-450); RED BLOOD COUNT 3.81 MIL/MM3 (4.50-5.90); RED CELL DISTRIBUTION WIDTH 12.4 % (11.6-17.2)
[2016-09-13 07:42] LABS: ANION GAP 5 MEQ/L (5-15); AST (GOT) 31 U/L (15-37); BICARBONATE 33.7 MEQ/L (21.0-32.0); BLOOD UREA NITROGEN 23 MG/DL (7-18); CHLORIDE 108 MEQ/L (98-107); GLOMERULAR FILTRATION RATE 111 ML/MIN (>89); MAGNESIUM 2.8 MG/DL (1.5-2.5); POTASSIUM 4.1 MEQ/L (3.5-5.1); SODIUM (NA) 147 MEQ/L (136-145)
[2016-09-13 07:46] LABS: ALKALINE PHOSPHATASE 97 U/L (45-117); ALT (GPT) 83 U/L (12-78); TOTAL BILIRUBIN ADULT 0.7 MG/DL (0.2-1.0)
--- NOTE | 2016-09-13 09:35 | HHI.PR ---
Subjective Remarks Follow-up GI bleed. Patient had brown stool with potential blood overnight for colonoscopy today. Patient is awake and tries to communicate and follow commands. Discussed with RN Objective Vitals Vital Signs Date Time Temp Pulse Resp B/P Pulse Ox O2 Delivery O2 Flow Rate FiO2 09/13/16 07:43 98.1 110 19 127/92 95 09/13/16 04:00 99.5 94 19 117/80 95 09/13/16 00:00 98.2 100 17 148/93 95 09/12/16 20:00 99.5 97 16 115/72 96 09/12/16 15:59 96.2 98 19 118/86 99 09/12/16 10:00 104 15 117/71 99 Room Air I/O 09/12/16 09/12/16 09/12/16 09/13/16 09/13/16 09/13/16 07:00 15:00 23:00 07:00 15:00 23:00 Intake Total 0 ml 0 ml Output Total 550 ml 450 ml 100 ml 500 ml Balance -550 ml -450 ml -100 ml -500 ml Intake Oral 0 ml 0 ml Output Urine Total 550 ml 450 ml 100 ml 500 ml # Voids 0 0 # Bowel Movements 2 1 Result Diagram: 09/13/16 0643 09/13/16 0643 Imaging Last Impressions Head CT 09/12/16414 Signed Impressions: Service Date/Time: August 04:33 - CONCLUSION: 1. 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 2. Large area of decreased attenuation involving the right frontal and parietal lobes which are nonspecific but most characteristic of an area of encephalomalacia. Comparison with old outside studies would be helpful. 3. 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 4. Status post right frontal craniotomy. Antonio Root MD Chest X-Ray 09/12/16 0415 Signed Impressions: Service Date/Time: August 04:24 - CONCLUSION: No acute disease. Antonio Root MD Abdomen/Pelvis CT 09/12/16 0000 Signed Impressions: Service Date/Time: August 11:26 - CONCLUSION: Gallbladder is unremarkable. I cannot identify a normal or abnormal appendix. The rectum is distended with stool without wall thickening or mass. Previous pelvic surgical clips. Lawrence Mckeon MD Objective Remarks GENERAL: This is a well-nourished, well-developed patient, in no apparent distress. SKIN: No rashes, ecchymoses or lesions. Cool and dry. HEAD: Atraumatic. Normocephalic. No temporal or scalp tenderness. EYES: Pupils equal round and reactive. no scleral icterus. No injection or drainage. ENT: Nose without bleeding, purulent drainage or septal hematoma. Airway patent. NECK: Trachea midline. No JVD or lymphadenopathy. Supple, nontender, no meningeal signs. CARDIOVASCULAR: Regular rate and rhythm without murmurs, gallops, or rubs. RESPIRATORY: Clear to auscultation. Breath sounds equal bilaterally. No wheezes , rales, or rhonchi. GASTROINTESTINAL: Abdomen soft no tenderness at right upper quadrant area, nondistended. No guarding. PEG in place MUSCULOSKELETAL: Extremities without clubbing, cyanosis, or edema. No calf tenderness. NEUROLOGICAL: Awake and alert. Expressive aphasia. Left facial droop. Left upper extremity and left lower extremity paralysis 0 out of 5. Procedures None A/P Problem List: (1) GI bleed ICD Code: K92.2 Status: Acute Assessment and Plan Worsening expressive aphasiaetiology unclear. Multifactorial. Possibly related to acute infectious process such as UTI. However in this patient with recent intracranial bleed, anticoagulation use, would need to rule out intracranial pathology. Seizure precautions.. Consulted neurosurgery regarding abnormal head CT, recommends transfer to [facility] because patient falls under global postoperative period with postoperative complications. EEG without seizure. Continue Keppra UTIin patient with chronic indwelling Stuart. Discontinue Stuart catheter and start voiding trial. Agree with IV Zosyn and follow up culture growing Pseudomonas. Monitor for urinary retention GI bleed. Transfuse if hemoglobin less than 8. PPI. GI for endoscopy today Diarrhearule out C. difficile colitis in a patient with recent hospitalization and antibiotics use. Obtain C. difficile. Lactinex if persistent diarrhea Abdominal painetiology unclear. Possibly related to GI bleed/colitis. However patient kept pointing more towards the right upper quadrant. LFTs are also elevated. We'll rule out cholecystitis/appendicitis. Hold statin for now. CT with distended rectum for colonoscopy today Hypertension. Hold BP medications for now. Continue to monitor with as needed antihypertensives Recent intracranial bleed on August 13, 2016. Status post craniotomy on July. Pulmonary embolism, with DVT during July 2016 hospitalizationwith what sounds like right heart strain from 's description. Currently on anticoagulation with Xarelto which will be placed on hold secondary to possible GI bleed. Patient and aware risk of clotting but risks outweigh benefits of anticoagulation at this time. If there is no evidence of GI bleed, would need to restart back on anticoagulation. It is worrisome from the description that it seems as if patient had right heart strain with this episode of PE. Would obtain an echocardiogram to evaluate for this Also consulted hematology for further opinion regarding anticoagulation., Hematology recommends Lovenox Patient and family would like to have aggressive physical therapy at [facility]. reported that this was the reason why they told ambulance personnel to bring him to [facility]. We'll consult rehabilitation medicine. DVT prophylaxisto start Lovenox once GI bleed is ruled out. Further choice per hematology. GI prophylaxis on pantoprazole. Continue tube feedings. Nothing by mouth for now pending swallowing evaluation Discharge Planning SNF vs [place] Problem Qualifiers (1) GI bleed: Qualified Code: K92.2 - Gastrointestinal hemorrhage, unspecified gastrointestinal hemorrhage type Edwin Lu MD September 13, 2016 09:35
[2016-09-13] MEDS: NYSTATIN SUSP 500,000 U/5 ML CUP SWISH-SWAL SCH ×4 (09:38→20:02)
[2016-09-13] MEDS: levETIRAcetam INJ 500 MG in SODIUM CHLORIDE 0.9% INJ 100 ML IV SCH ×2 (09:39→20:02)
[2016-09-13] MEDS: SODIUM CHLORIDE 0.9% FLUSH 10 ML FLUSH IV FLUSH SCH ×2 (09:39→21:00)
[2016-09-13] MEDS: SODIUM CHLORIDE 0.9% FLUSH 10 ML FLUSH IV FLUSH PRN ×2 (11:01→17:31)
--- NOTE | 2016-09-13 16:17 | HHI.GIFU ---
Subjective Remarks Immediate post procedure note Rectal exam under anesthesia. After sedation for colonoscopy a rectal exam demonstrated the rectum was impacted with stool. The exam was terminated. Impression Fecal impaction. Rec: Miralax 17gm q 6 h. via tube. Objective Vitals I&O Vital Signs Date Time Temp Pulse Resp B/P Pulse Ox O2 Delivery O2 Flow Rate FiO2 09/13/16 13:03 98.6 99 16 123/76 95 09/13/16 11:41 98.6 109 19 121/75 94 09/13/16 07:43 98.1 110 19 127/92 95 09/13/16 04:00 99.5 94 19 117/80 95 09/13/16 00:00 98.2 100 17 148/93 95 09/12/16 20:00 99.5 97 16 115/72 96 I/O 09/12/16 09/12/16 09/12/16 09/13/16 09/13/16 09/13/16 07:00 15:00 23:00 07:00 15:00 23:00 Intake Total 0 ml 0 ml 1595 ml Output Total 550 ml 450 ml 100 ml 500 ml 300 ml Balance -550 ml -450 ml -100 ml -500 ml 1295 ml Intake Oral 0 ml 0 ml 0 ml IV Total 1595 ml Output Urine Total 550 ml 450 ml 100 ml 500 ml 300 ml # Voids 0 0 1 # Bowel Movements 2 1 1 Laboratory Laboratory Tests Test 09/13/16 09/13/16 02:07 06:43 Hemoglobin 12.6 13.1 Hematocrit 38.0 38.6 White Blood Count 11.0 Red Blood Count 3.81 Mean Corpuscular Volume 101.3 Mean Corpuscular Hemoglobin 34.3 Mean Corpuscular Hemoglobin 33.9 Concent Red Cell Distribution Width 12.4 Platelet Count 275 Mean Platelet Volume 9.9 Neutrophils (%) (Auto) 75.1 Lymphocytes (%) (Auto) 16.1 Monocytes (%) (Auto) 7.8 Eosinophils (%) (Auto) 0.7 Basophils (%) (Auto) 0.3 Neutrophils # (Auto) 8.3 Lymphocytes # (Auto) 1.8 Monocytes # (Auto) 0.9 Eosinophils # (Auto) 0.1 Basophils # (Auto) 0.0 CBC Comment DIFF FINAL Differential Comment Sodium Level 147 Potassium Level 4.1 Chloride Level 108 Carbon Dioxide Level 33.7 Anion Gap 5 Blood Urea Nitrogen 23 Creatinine 0.70 Estimat Glomerular Filtration 111 Rate Random Glucose 114 Calcium Level 8.6 Magnesium Level 2.8 Total Bilirubin 0.7 Aspartate Amino Transf 31 (AST/SGOT) Alanine Aminotransferase 83 (ALT/SGPT) Alkaline Phosphatase 97 Total Protein 6.2 Albumin 2.2 Date/Time Procedure Status Source Growth 09/12/16 04:18 Urine Culture - Preliminary Resulted Urine Catheterized Urine Pseudomonas Species Physical Exam HEENT: Pupils round and reactive to light; normocephalic; atraumatic; no jaundice. Throat is clear. NECK: Neck is supple, no JVD, no lymphadenopathy. CHEST: Chest is clear to auscultation and percussion. CARDIAC: Regular rate and rhythm with no murmur gallop or rubs. ABDOMEN: Soft, nondistended, nontender; no hepatosplenomegaly; bowel sounds are present in all four quadrants. EXTREMITIES: No clubbing, cyanosis, or edema. SKIN: Normal; no rash; no jaundice. ROLLER ENGRAVER: No focal deficits; alert and oriented times three. Assessment and Plan Plan ASSESSMENT - lower GIB - 2 d ago his noticed his stool was reddish brown but formed, this morning significant amt BRBPR with clots, continually oozing. Currently there is small amt dark red blood staining his diaper. HH 13.3, 38.5. was on xarelto till yesterday, s/p crani 08/21/16 and had PE, DVT after 09/13 after sedation for colonoscopy rectal exam showed rectal fecal impaction. PLAN - obtain consents -Miralax 17 gm q 6 h - Gianluca Maldonado MD September 13, 2016 16:17
--- NOTE | 2016-09-13 16:33 | OTSOAPIP ---
TIME SESSION COMPLETED: AM TREATMENT TIME: 0 MINS. CHART REVIEWED. ATTEMPTED TO SEE FOR OT HOWEVER GOING OFF FLOOR ON STRETCHER FOR TESTING. WILL FOLLOW NEXT DAY. Therapist: CARLY TORRES OT/Chidi Signature on file
[2016-09-13] MEDS ORDERED: PROPOFOL 200 MG/20 ML AMP IV ONE (16:59)
[2016-09-13] MEDS ORDERED: POLYETHYLENE GLYCOL 17 GM PKG G-TUBE SCH (18:00)
[2016-09-13] MEDS ORDERED: MORPHINE SULFATE 4 MG/ML INJ IV PUSH ONE (18:30)
[2016-09-13] MEDS: ENOXAPARIN SODIUM 80 MG/0.8 ML SYRINGE SQ SCH (21:16)
[2016-09-14] VITALS: BP 111/68; PULSE 97; RESP 16; TEMP 97; O2SAT 95
[2016-09-14] MEDS: POLYETHYLENE GLYCOL 17 GM PKG G-TUBE SCH ×5 (01:05→23:16)
[2016-09-14 04:00] VITALS: BP 139/80; PULSE 102; RESP 17; TEMP 96.5; O2SAT 96
[2016-09-14] MEDS: PIPERACIL-TAZO 4.5 GM PREMIX 100 ML IV SCH ×2 (04:00→08:58)
[2016-09-14] MEDS: PANTOPRAZOLE INJ 80 MG in SODIUM CHLORIDE 0.9% INJ 100 ML IV SCH ×2 (06:40→08:59)
[2016-09-14] MEDS: 1/2 NS + KCL 20 MEQ INJ 1,000 ML IV SCH (06:41)
[2016-09-14] MEDS: ENOXAPARIN SODIUM 80 MG/0.8 ML SYRINGE SQ SCH ×2 (08:57→20:38)
[2016-09-14] MEDS: NYSTATIN SUSP 500,000 U/5 ML CUP SWISH-SWAL SCH ×4 (08:57→20:38)
[2016-09-14] MEDS: levETIRAcetam INJ 500 MG in SODIUM CHLORIDE 0.9% INJ 100 ML IV SCH (08:58)
[2016-09-14] MEDS: SODIUM CHLORIDE 0.9% FLUSH 10 ML FLUSH IV FLUSH SCH ×2 (08:59→20:39)
--- NOTE | 2016-09-14 11:13 | HHI.PR ---
Subjective Remarks Follow-up encephalopathy, GI bleed and UTI. He is awake trying to communicate and follow commands. He gives me a thumbs up and dictating no abdominal pain. Discussed with RN and . Also discussed with GI last night. requests patient to be referred to [facility]. She also does not want patient to be transferred back to [facility]. Discussed with case management Objective Vitals Vital Signs Date Time Temp Pulse Resp B/P Pulse Ox O2 Delivery O2 Flow Rate FiO2 09/14/16 04:00 96.5 102 17 139/80 96 09/14/16 00:00 97.0 97 16 111/68 95 09/13/16 20:00 97.0 109 17 134/95 94 09/13/16 16:40 95.3 105 18 142/82 97 09/13/16 16:18 104 16 144/84 100 09/13/16 16:13 106 16 140/88 100 09/13/16 16:08 98.6 106 16 144/92 100 09/13/16 13:03 98.6 99 16 123/76 95 09/13/16 11:41 98.6 109 19 121/75 94 I/O 09/13/16 09/13/16 09/13/16 09/14/16 09/14/16 09/14/16 07:00 15:00 23:00 07:00 15:00 23:00 Intake Total 0 ml 1595 ml 0 ml Output Total 500 ml 300 ml Balance -500 ml 1295 ml 0 ml Intake Oral 0 ml 0 ml 0 ml IV Total 1595 ml Output Urine Total 500 ml 300 ml # Voids 1 1 2 # Bowel Movements 1 1 0 3 Result Diagram: 09/13/16 0643 09/13/1643 Imaging Last Impressions Head CT 09/12/16414 Signed Impressions: Service Date/Time: August 04:33 - CONCLUSION: 1. 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 2. Large area of decreased attenuation involving the right frontal and parietal lobes which are nonspecific but most characteristic of an area of encephalomalacia. Comparison with old outside studies would be helpful. 3. 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 4. Status post right frontal craniotomy. Antonio Root MD Chest X-Ray 09/12/16414 Signed Impressions: Service Date/Time: August 04:24 - CONCLUSION: No acute disease. Antonio Root MD Abdomen/Pelvis CT 09/12/16 0000 Signed Impressions: Service Date/Time: August 11:26 - CONCLUSION: Gallbladder is unremarkable. I cannot identify a normal or abnormal appendix. The rectum is distended with stool without wall thickening or mass. Previous pelvic surgical clips. Lawrence Mckeon MD Objective Remarks GENERAL: This is a well-nourished, well-developed patient, in no apparent distress. SKIN: No rashes, ecchymoses or lesions. Cool and dry. HEAD: Atraumatic. Normocephalic. No temporal or scalp tenderness. EYES: Pupils equal round and reactive. no scleral icterus. No injection or drainage. ENT: Nose without bleeding, purulent drainage or septal hematoma. Airway patent. NECK: Trachea midline. No JVD or lymphadenopathy. Supple, nontender, no meningeal signs. CARDIOVASCULAR: Regular rate and rhythm without murmurs, gallops, or rubs. RESPIRATORY: Clear to auscultation. Breath sounds equal bilaterally. No wheezes , rales, or rhonchi. GASTROINTESTINAL: Abdomen soft no tenderness, nondistended. No guarding. PEG in place MUSCULOSKELETAL: Extremities without clubbing, cyanosis, or edema. No calf tenderness. NEUROLOGICAL: Awake and alert. Expressive aphasia. Left facial droop. Left upper extremity and left lower extremity paralysis 0 out of 5. Procedures Aborted colonoscopy. A/P Problem List: (1) GI bleed ICD Code: K92.2 Status: Acute Assessment and Plan Worsening expressive aphasiaetiology unclear. Multifactorial. Possibly related to acute infectious process such as UTI and constipation. However in this patient with recent intracranial bleed, anticoagulation use, would need to rule out intracranial pathology. Seizure precautions.. Consulted neurosurgery regarding abnormal head CT, recommends transfer to [facility] because patient falls under global postoperative period with postoperative complications. Patient does not want patient to be transferred back to [facility]. Discussed with neurosurgery, no surgical intervention indicated at this time. will make appointment with operating surgeon outpatient. EEG without seizure. Continue Keppra UTIin patient with chronic indwelling Stuart. Discontinued Stuart catheter. Culture with Pseudomonas. Agree with IV Zosyn which will be switched to Levaquin. Monitor for urinary retention GI bleed. Transfuse if hemoglobin less than 8. PPI. GI aborted colonoscopy secondary to fecal impaction which likely cause GI bleed. Patient underwent manual disimpaction and he is now stooling. We'll continue to monitor for GI bleed while on anticoagulation which was cleared by GI. Diarrhearule out C. difficile colitis in a patient with recent hospitalization and antibiotics use. Obtain C. difficile. Lactinex if persistent diarrhea. Improved Abdominal pain secondary to impaction. LFTs are also elevated, already improving. Hold statin for now. Hypertension. Hold BP medications for now. Continue to monitor with as needed antihypertensives Recent intracranial bleed on August 13, 2016. Status post craniotomy on July. Pulmonary embolism, with DVT during July 2016 hospitalizationwith what sounds like right heart strain from 's description. Currently on anticoagulation with Xarelto which will be placed on hold secondary to GI bleed. Hematology recommends anticoagulation when cleared by GI. Spoke with Dr. Joel zepeda to start Lovenox. If no further bleeding, may switch to Xarelto for convenience Patient and family would like to have aggressive physical therapy at [facility]. reported that this was the reason why they told ambulance personnel to bring him to [facility]. We'll consult rehabilitation medicine. DVT prophylaxisLovenox. GI prophylaxis on pantoprazole. Continue tube feedings. Discharge Planning SNF vs [facility]. We'll clarify with GI if colonoscopy still indicated Problem Qualifiers (1) GI bleed: Qualified Code: K92.2 - Gastrointestinal hemorrhage, unspecified gastrointestinal hemorrhage type Edwin Lu MD September 14, 2016 11:13
--- NOTE | 2016-09-14 11:21 | HHI.DCPOC ---
Discharge Care Plan Diagnosis: (1) GI bleed (2) UTI (urinary tract infection) Your Health Problems Are: Difficulty with ADL Exercise Tolerance Goals to Promote Your Health * To prevent worsening of your condition and complications * To maintain your health at the optimal level Directions to Meet Your Goals Take your medications as prescribed Follow your dietary instruction Follow activity as directed Keep your appointments as scheduled Take your immunizations and boosters as scheduled If your symptoms worsen call your PCP, if no PCP go to Urgent Care Center or Emergency Room Smoking is Dangerous to Your Health. Avoid second hand smoke Call the 24-hour hour crisis hotline for domestic abuse at Edwin Lu MD September 14, 2016 11:21
[2016-09-14] MEDS ORDERED: ENOX80P SQ (11:23)
[2016-09-14] MEDS ORDERED: LEVA500T G-TUBE (11:33)
[2016-09-14] MEDS ORDERED: PREV30TA3 G-TUBE (11:33)
[2016-09-14] MEDS ORDERED: LEVE500 G-TUBE (11:33)
[2016-09-14 12:04] VITALS: BP 112/76; PULSE 53; RESP 18; TEMP 96.3; O2SAT 98
[2016-09-14] MEDS: LEVOFLOXACIN 500 MG TAB G-TUBE SCH (12:26)
--- NOTE | 2016-09-14 13:21 | HHI.GIFU ---
Subjective Remarks Patient is resting in bed accompanied by sister. Patient is nonverbal, per nurse , he had some bleeding on awake overnight counselor, but non today, he is having good multiple BMs. Tolerating TF okay Objective Vitals I&O Vital Signs Date Time Temp Pulse Resp B/P Pulse Ox O2 Delivery O2 Flow Rate FiO2 09/14/16 12:04 96.3 53 18 112/76 98 09/14/16 04:00 96.5 102 17 139/80 96 09/14/16 00:00 97.0 97 16 111/68 95 09/13/16 20:00 97.0 109 17 134/95 94 09/13/16 16:40 95.3 105 18 142/82 97 09/13/16 16:18 104 16 144/84 100 09/13/16 16:13 106 16 140/88 100 09/13/16 16:08 98.6 106 16 144/92 100 I/O 09/13/16 09/13/16 09/13/16 09/14/16 09/14/16 09/14/16 07:00 15:00 23:00 07:00 15:00 23:00 Intake Total 0 ml 1595 ml 0 ml Output Total 500 ml 300 ml Balance -500 ml 1295 ml 0 ml Intake Oral 0 ml 0 ml 0 ml IV Total 1595 ml Output Urine Total 500 ml 300 ml # Voids 1 1 2 # Bowel Movements 1 1 0 3 Laboratory Date/Time Procedure Status Source Growth 09/12/16 04:18 Urine Culture - Final Complete Urine Catheterized Urine Pseudomonas Aeruginosa Imaging Last Impressions Head CT 09/12/16414 Signed Impressions: Service Date/Time: August 04:33 - CONCLUSION: 1. 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 2. Large area of decreased attenuation involving the right frontal and parietal lobes which are nonspecific but most characteristic of an area of encephalomalacia. Comparison with old outside studies would be helpful. 3. 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 4. Status post right frontal craniotomy. Antonio Root MD Chest X-Ray 09/12/165 Signed Impressions: Service Date/Time: August 04:24 - CONCLUSION: No acute disease. Antonio Root MD Abdomen/Pelvis CT 09/12/16 0000 Signed Impressions: Service Date/Time: , September 12, 2016 11:26 - CONCLUSION: Gallbladder is unremarkable. I cannot identify a normal or abnormal appendix. The rectum is distended with stool without wall thickening or mass. Previous pelvic surgical clips. Lawrence Mckeon MD Physical Exam HEENT: normocephalic; atraumatic; no jaundice. NECK: Neck is supple, no JVD, no lymphadenopathy. CHEST: Chest is clear to auscultation and percussion. CARDIAC: Regular rate and rhythm with no murmur gallop or rubs. ABDOMEN: Soft, nondistended, nontender; no hepatosplenomegaly; bowel sounds are present in all four quadrants. 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 Currently there is small amt dark red blood staining his diaper. HH 13.3, 38.5. was on xarelto till yesterday, s/p crani 08/21/16 and had PE, DVT after 09/13 after sedation for colonoscopy rectal exam showed rectal fecal impaction. 09/14 No bleeding today, having multiple soft stools, hh stable 13.1/38.6 PLAN - TF as tolerated -Miralax 17 gm q 6 h in preparation for colonoscopy on Friday, this was discussed with nurse - Consents for colonoscopy on Friday - [place] tomorrow - NPO Friday Mn - monitor hh - Transfuse as needed - Patient seen and examined by Dr. Maldonado and myself and this note is written on his behalf. Chrissy Doshi September 14, 2016 13:21
[2016-09-14 18:12] VITALS: BP 121/74; PULSE 88; RESP 16; TEMP 95.7; O2SAT 96
[2016-09-14 20:00] VITALS: BP 122/78; PULSE 96; RESP 17; TEMP 98.2; O2SAT 95
[2016-09-14] MEDS: levETIRAcetam 500 MG TAB G-TUBE SCH (20:38)
[2016-09-15] VITALS (8 sets, daily range): BP systolic 118–170; BP diastolic 73–93; PULSE 88–99; RESP 17–20; TEMP 96.5–98.1; O2SAT 94–98
[2016-09-15 05:56] LABS: BICARBONATE 33.2 MEQ/L (21.0-32.0); MAGNESIUM 2.4 MG/DL (1.5-2.5); POTASSIUM 3.1 MEQ/L (3.5-5.1)
[2016-09-15] MEDS: POLYETHYLENE GLYCOL 17 GM PKG G-TUBE SCH ×2 (06:00→08:33)
[2016-09-15] MEDS: LANSOPRAZOLE SOLUTAB 30 MG TAB G-TUBE SCH (08:32)
[2016-09-15] MEDS: ENOXAPARIN SODIUM 80 MG/0.8 ML SYRINGE SQ SCH ×2 (08:32→20:00)
[2016-09-15] MEDS: LEVOFLOXACIN 500 MG TAB G-TUBE SCH (08:32)
[2016-09-15] MEDS: levETIRAcetam 500 MG TAB G-TUBE SCH ×2 (08:32→20:11)
[2016-09-15] MEDS: NYSTATIN SUSP 500,000 U/5 ML CUP SWISH-SWAL SCH ×4 (08:32→20:11)
[2016-09-15] MEDS: SODIUM CHLORIDE 0.9% FLUSH 10 ML FLUSH IV FLUSH SCH ×2 (08:45→20:11)
[2016-09-15] MEDS ORDERED: POTASSIUM CHLORIDE 25 MEQ EFFERVESCENT TAB G-TUBE ONE (10:00)
--- NOTE | 2016-09-15 12:10 | HHI.PR ---
Subjective Remarks Follow-up GI bleed. No further bleeding. He is stooling. Discussed with family, he is almost baseline in terms of mental status. Following simple commands. Slight movement of the left lower extremity including toes. Discussed with RN Objective Vitals Vital Signs Date Time Temp Pulse Resp B/P Pulse Ox O2 Delivery O2 Flow Rate FiO2 09/15/16 04:00 97.0 91 17 126/78 96 09/15/16 00:23 94 09/15/16 00:00 96.9 93 18 139/73 97 09/14/16 20:00 98.2 96 17 122/78 95 09/14/16 18:12 95.7 88 16 121/74 96 I/O 09/14/16 09/14/16 09/14/16 09/15/16 09/15/16 09/15/16 06:59 14:59 22:59 06:59 14:59 22:59 Intake Total 1240 ml 466 ml 655 ml Balance 1240 ml 466 ml 655 ml Intake Oral 0 ml 0 ml IV Total 820 ml Tube Feeding 420 ml 366 ml 455 ml Other 100 ml 200 ml # Voids 2 3 1 3 # Bowel Movements 3 5 1 3 Result Diagram: 09/13/16 0643 09/15/16 0519 Imaging Last Impressions Head CT 09/12/16414 Signed Impressions: Service Date/Time: August 04:33 - CONCLUSION: 1. 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 2. Large area of decreased attenuation involving the right frontal and parietal lobes which are nonspecific but most characteristic of an area of encephalomalacia. Comparison with old outside studies would be helpful. 3. 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 4. Status post right frontal craniotomy. Antonio Root MD Chest X-Ray 09/12/16 0415 Signed Impressions: Service Date/Time: August 04:24 - CONCLUSION: No acute disease. Antonio Root MD Abdomen/Pelvis CT 09/12/16 0000 Signed Impressions: Service Date/Time: August 11:26 - CONCLUSION: Gallbladder is unremarkable. I cannot identify a normal or abnormal appendix. The rectum is distended with stool without wall thickening or mass. Previous pelvic surgical clips. Larwence Mckeon MD Objective Remarks GENERAL: This is a well-nourished, well-developed patient, in no apparent distress. SKIN: No rashes, ecchymoses or lesions. Cool and dry. HEAD: Atraumatic. Normocephalic. No temporal or scalp tenderness. EYES: Pupils equal round and reactive. no scleral icterus. No injection or drainage. ENT: Nose without bleeding, purulent drainage or septal hematoma. Airway patent. NECK: Trachea midline. No JVD or lymphadenopathy. Supple, nontender, no meningeal signs. CARDIOVASCULAR: Regular rate and rhythm without murmurs, gallops, or rubs. RESPIRATORY: Clear to auscultation. Breath sounds equal bilaterally. No wheezes , rales, or rhonchi. GASTROINTESTINAL: Abdomen soft no tenderness, nondistended. No guarding. PEG in place MUSCULOSKELETAL: Extremities without clubbing, cyanosis, or edema. No calf tenderness. NEUROLOGICAL: Awake and alert. Expressive aphasia. Left facial droop. Left upper extremity and left lower extremity paralysis occasionally shows minimal wiggling of the toes Procedures Aborted colonoscopy. A/P Problem List: (1) GI bleed ICD Code: K92.2 Status: Acute Assessment and Plan Worsening expressive aphasiaetiology unclear. Multifactorial. Possibly related to acute infectious process such as UTI and constipation. However in this patient with recent intracranial bleed, anticoagulation use, would need to rule out intracranial pathology. Seizure precautions.. Consulted neurosurgery regarding abnormal head CT, recommends transfer to [facility] because patient falls under global postoperative period with postoperative complications. Patient's does not want patient to be transferred back to [facility]. Discussed with neurosurgery, no surgical intervention indicated at this time. will make appointment with operating surgeon outpatient. EEG without seizure. Continue Keppra UTIin patient with chronic indwelling Stuart. Discontinued Stuart catheter. Culture with Pseudomonas. S/p IV Zosyn ct Levaquin. Monitor for urinary retention GI bleed. Transfuse if hemoglobin less than 8. PPI. GI aborted colonoscopy secondary to fecal impaction which likely cause GI bleed. Patient underwent manual disimpaction and he is now stooling. We'll continue to monitor for GI bleed while on anticoagulation which was cleared by GI. For colonoscopy in the morning Diarrhearule out C. difficile colitis in a patient with recent hospitalization and antibiotics use. Obtain C. difficile. Lactinex if persistent diarrhea. Improved Abdominal pain secondary to impaction. LFTs are also elevated, already improving. Hold statin for now. Hypertension. Hold BP medications for now. Continue to monitor with as needed antihypertensives Recent intracranial bleed on August 13, 2016. Status post craniotomy on July. Pulmonary embolism, with DVT during July 2016 hospitalizationwith what sounds like right heart strain from 's description. Currently on anticoagulation with Xarelto which will be placed on hold secondary to GI bleed. Hematology recommends anticoagulation when cleared by GI. Spoke with Dr. Joel zepeda to start Lovenox. If no further bleeding, may switch to Xarelto for convenience Patient and family would like to have aggressive physical therapy at [facility]. reported that this was the reason why they told ambulance personnel to bring him to [facility]. We'll consult rehabilitation medicine. DVT prophylaxisLovenox. GI prophylaxis on pantoprazole. Continue tube feedings. Discharge Planning SNF vs [facility]. Problem Qualifiers (1) GI bleed: Qualified Code: K92.2 - Gastrointestinal hemorrhage, unspecified gastrointestinal hemorrhage type Edwin Lu MD September 15, 2016 12:10
--- NOTE | 2016-09-15 12:42 | HHI.GIFU ---
Subjective Remarks Pt appears happy but does not communicate. No problems reported. He is to have colonoscopy tomorrow because of rectal bleeding, on anticoagulants. He was found to have constipation with fecal impaction. Now he is having loose stools with the miralax and MOM. We will prep for colo tomorrow. Hold Lovenox morning dose. Objective Vitals I&O Vital Signs Date Time Temp Pulse Resp B/P Pulse Ox O2 Delivery O2 Flow Rate FiO2 09/15/16 04:00 97.0 91 17 126/78 96 09/15/16 00:23 94 09/15/16 00:00 96.9 93 18 139/73 97 09/14/16 20:00 98.2 96 17 122/78 95 09/14/16 18:12 95.7 88 16 121/74 96 I/O 09/14/16 09/14/16 09/14/16 09/15/16 09/15/16 09/15/16 07:00 15:00 23:00 07:00 15:00 23:00 Intake Total 1240 ml 466 ml 655 ml Balance 1240 ml 466 ml 655 ml Intake Oral 0 ml 0 ml IV Total 820 ml Tube Feeding 420 ml 366 ml 455 ml Other 100 ml 200 ml # Voids 2 3 1 3 # Bowel Movements 3 5 1 3 Laboratory Laboratory Tests Test 09/15/16 05:19 Sodium Level 146 Potassium Level 3.1 Chloride Level 107 Carbon Dioxide Level 33.2 Anion Gap 6 Blood Urea Nitrogen 15 Creatinine 0.66 Estimat Glomerular Filtration 118 Rate Random Glucose 119 Calcium Level 8.0 Magnesium Level 2.4 Date/Time Procedure Status Source Growth 09/12/16 04:18 Urine Culture - Final Complete Urine Catheterized Urine Pseudomonas Aeruginosa Physical Exam HEENT: normocephalic; atraumatic; no jaundice. NECK: Neck is supple, no JVD, no lymphadenopathy. CHEST: Chest is clear to auscultation and percussion. CARDIAC: Regular rate and rhythm with no murmur gallop or rubs. ABDOMEN: Soft, nondistended, nontender; no hepatosplenomegaly; bowel sounds are present in all four quadrants. 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 Currently there is small amt dark red blood staining his diaper. HH 13.3, 38.5. was on xarelto till yesterday, s/p crani 08/21/16 and had PE, DVT after 09/13 after sedation for colonoscopy rectal exam showed rectal fecal impaction. 09/14 No bleeding today, having multiple soft stools, hh stable 13.1/38.6 09/15 Prep for colonoscopy tomorrow K is low PLAN -Stop tube feeding at 1 PM. -Colyte for prep -Stop miralax and MOM - Consents for colonoscopy on Friday - ly tomorrow - NPO Friday Mn - monitor hh -IV potassium today. -Hold lovenox morning dose tomorrow Gianluca Maldonado MD September 15, 2016 12:42
[2016-09-15 14:11] LABS: BICARBONATE 33.9 MEQ/L (21.0-32.0); POTASSIUM 3.8 MEQ/L (3.5-5.1)
[2016-09-15] MEDS ORDERED: PEG (High)/E-LYTE SOLN 4000 ML BTL PO ONE (16:00)
[2016-09-16] VITALS (7 sets, daily range): BP systolic 111–157; BP diastolic 76–93; PULSE 84–95; RESP 15–19; TEMP 95.3–98.5; O2SAT 96–99
[2016-09-16 07:39] LABS: AUTOMATED NEUTROPHIL # 5.6 TH/MM3 (1.8-7.7); BASOPHIL % 0.5 % (0.0-2.0); EOSINOPHIL # 0.3 TH/MM3 (0-0.4); HEMATOCRIT 38.4 % (39.0-51.0); HEMO FLAGS DIFF FINAL; LYMPH % 24.1 % (9.0-44.0); LYMPHOCYTE # 2.1 TH/MM3 (1.0-4.8); MEAN CELL VOLUME 100.7 FL (80.0-100.0); MEAN CORPUSCULAR HGB CONC 34.8 % (32.0-36.0); MONO % 6.9 % (0.0-8.0); NEUT % 65.5 % (16.0-70.0); PLATELET COUNT 280 TH/MM3 (150-450); RED BLOOD COUNT 3.81 MIL/MM3 (4.50-5.90); RED CELL DISTRIBUTION WIDTH 12.5 % (11.6-17.2); WHITE BLOOD COUNT 8.5 TH/MM3 (4.0-11.0)
[2016-09-16 08:00] LABS: BICARBONATE 30.6 MEQ/L (21.0-32.0); POTASSIUM 3.3 MEQ/L (3.5-5.1)
[2016-09-16] MEDS: ENOXAPARIN SODIUM 80 MG/0.8 ML SYRINGE SQ SCH ×2 (08:00→20:10)
[2016-09-16] MEDS ORDERED: POTASSIUM CHLORIDE 25 MEQ EFFERVESCENT TAB PO ONE (09:00)
[2016-09-16] MEDS ORDERED: PROPOFOL 200 MG/20 ML AMP IV ONE (09:52)
--- NOTE | 2016-09-16 10:24 | PD.PROCEDR ---
GI Procedure REFERRING PHYSICIAN REFUGIO ARMENDARIZ PERFORMED Colonoscopy with ablation and snare polypectomy INDICATION FOR PROCEDURE Lower GI bleed PROCEDURE: The procedure, risks and benefits were discussed with Mr. Jovel and informed consent was obtained. Anesthesia sedated him with Diprivan. He was placed in the left lateral decubitus position. Colonoscopy: The Pentax videoscope was introduced through the rectum and advanced to cecum where the ileocecal valve and appendiceal orifice were identified. Retroflexion was performed in the rectum. Colonic prep was fair FINDINGS: Colonic withdrawal time greater than 6 minutes as the scope was slowly withdrawn colonic mucosa was carefully inspected the patient was noted to have several polyps one in the ascending colon this was excised using cold snare technique there was a second one in the descending colon sessile adenomatous- appearing also excised using cold snare technique. There were Several polyps in the rectum diminutive and small the diminutive ones were fulgurated the slightly bigger ones were excised using hot snare technique the patient was noted to have scattered diverticulosis mostly in the sigmoid and he was noted to have a medium-sized superficial ulcer in the rectum no visible vessel no blood or bleeding otherwise rectal examination was unremarkable ESTIMATED BLOOD LOSS: None SPECIMENS REMOVED: Colon polyps COMPLICATIONS: None IMPRESSION: Colon polyps Diverticulosis Rectal ulcer PLAN: Await biopsies Recommend a colonoscopy in 1 year Continue with current supportive care Marcelino Cox MD September 16, 2016 10:24
[2016-09-16] MEDS: NYSTATIN SUSP 500,000 U/5 ML CUP SWISH-SWAL SCH ×3 (13:57→20:10)
--- NOTE | 2016-09-16 13:57 | HHI.PR ---
Subjective Remarks Follow-up GI bleed. No further bleeding and tolerated colonoscopy which showed ascending colon polyps status post polypectomy and rectal ulcer with no active bleeding. Discussed with RN and physical therapy. Objective Vitals Vital Signs Date Time Temp Pulse Resp B/P Pulse Ox O2 Delivery O2 Flow Rate FiO2 09/16/16 10:35 79 18 142/66 98 09/16/16 10:19 97.6 79 20 122/64 99 09/16/16 09:15 95.3 85 15 136/86 98 09/16/16 08:00 95.3 85 15 136/86 98 09/16/16 08:00 94 Room Air 09/16/16 08:00 85 09/16/16 04:00 96.6 86 19 157/93 99 09/16/16 00:00 96.7 90 16 156/91 99 09/15/16 20:00 96 09/15/16 19:00 98.1 94 17 170/93 94 09/15/16 18:52 Room Air 09/15/16 16:00 96.5 99 20 151/90 97 I/O 09/15/16 09/15/16 09/15/16 09/16/16 09/16/16 09/16/16 06:59 14:59 22:59 06:59 14:59 22:59 Intake Total 655 ml 480 ml 900 ml Output Total 2350 ml 500 ml Balance 655 ml -1870 ml -500 ml 900 ml Intake Oral 0 ml 480 ml IV Total 900 ml Tube Feeding 455 ml Other 200 ml Stool Total 2350 ml 500 ml # Voids 3 8 # Bowel Movements 3 5 Result Diagram: 09/16/16 0637 09/16/16636 Imaging Last Impressions Head CT 09/12/16414 Signed Impressions: Service Date/Time: August 04:33 - CONCLUSION: 1. 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 2. Large area of decreased attenuation involving the right frontal and parietal lobes which are nonspecific but most characteristic of an area of encephalomalacia. Comparison with old outside studies would be helpful. 3. 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 4. Status post right frontal craniotomy. Antonio Root MD Chest X-Ray 09/12/165 Signed Impressions: Service Date/Time: August 04:24 - CONCLUSION: No acute disease. Antonio Root MD Abdomen/Pelvis CT 09/12/16 0000 Signed Impressions: Service Date/Time: August 11:26 - CONCLUSION: Gallbladder is unremarkable. I cannot identify a normal or abnormal appendix. The rectum is distended with stool without wall thickening or mass. Previous pelvic surgical clips. Lawrence Mckeon MD Objective Remarks GENERAL: This is a well-nourished, well-developed patient, in no apparent distress. SKIN: No rashes, ecchymoses or lesions. Cool and dry. HEAD: Atraumatic. Normocephalic. No temporal or scalp tenderness. EYES: Pupils equal round and reactive. no scleral icterus. No injection or drainage. ENT: Nose without bleeding, purulent drainage or septal hematoma. Airway patent. NECK: Trachea midline. No JVD or lymphadenopathy. Supple, nontender, no meningeal signs. CARDIOVASCULAR: Regular rate and rhythm without murmurs, gallops, or rubs. RESPIRATORY: Clear to auscultation. Breath sounds equal bilaterally. No wheezes , rales, or rhonchi. GASTROINTESTINAL: Abdomen soft no tenderness, nondistended. No guarding. PEG in place MUSCULOSKELETAL: Extremities without clubbing, cyanosis, or edema. No calf tenderness. NEUROLOGICAL: Awake and alert. Expressive aphasia. Left facial droop. Left upper extremity and left lower extremity paralysis occasionally shows minimal wiggling of the toes Procedures Colonoscopy. A/P Problem List: (1) GI bleed ICD Code: K92.2 Status: Acute Assessment and Plan Worsening expressive aphasia. Multifactorial. Possibly related to acute infectious process such as UTI and constipation. However in this patient with recent intracranial bleed, anticoagulation use, would need to rule out intracranial pathology. Seizure precautions.. Consulted neurosurgery regarding abnormal head CT, recommends transfer to [facility] because patient falls under global postoperative period with postoperative complications. Patient's does not want patient to be transferred back to [facility]. Discussed with neurosurgery, no surgical intervention indicated at this time. will make appointment with operating surgeon outpatient. EEG without seizure. Continue Keppra. Clinically improved per family he is back to baseline UTIin patient with chronic indwelling Stuart. Discontinued Stuart catheter. Culture with Pseudomonas. S/p IV Zosyn ct Levaquin through September 19. Monitor for urinary retention GI bleed. Transfuse if hemoglobin less than 8. PPI. GI aborted colonoscopy secondary to fecal impaction which likely cause GI bleed. Patient underwent manual disimpaction and he is now stooling. We'll continue to monitor for GI bleed while on anticoagulation which was cleared by GI. Colonoscopy showed multiple polyps in the ascending colon status post polypectomy and rectal ulcer with no active bleed. Diarrhearule out C. difficile colitis in a patient with recent hospitalization and antibiotics use. Obtain C. difficile. Lactinex if persistent diarrhea. Improved Abdominal pain secondary to impaction. LFTs are also elevated, already improving. Hold statin for now. Hypertension. Restart dilan Continue to monitor with as needed antihypertensives Recent intracranial bleed on August 13, 2016. Status post craniotomy on July. Pulmonary embolism, with DVT during July 2016 hospitalizationwith what sounds like right heart strain from 's description. Currently on anticoagulation with Xarelto which will be placed on hold secondary to GI bleed. Hematology recommends anticoagulation when cleared by GI. Spoke with Dr. Joel zepeda to start Lovenox. If no further bleeding, may switch to Xarelto for convenience Patient and family would like to have aggressive physical therapy at [facility]. reported that this was the reason why they told ambulance personnel to bring him to [facility]. We'll consult rehabilitation medicine. DVT prophylaxisLovenox. GI prophylaxis on pantoprazole. Continue tube feedings. Discharge Planning SNF vs [facility] when accepted. Problem Qualifiers (1) GI bleed: Qualified Code: K92.2 - Gastrointestinal hemorrhage, unspecified gastrointestinal hemorrhage type Edwin Lu MD September 16, 2016 13:57
[2016-09-16] MEDS: LEVOFLOXACIN 500 MG TAB G-TUBE SCH (13:58)
[2016-09-16] MEDS: LANSOPRAZOLE SOLUTAB 30 MG TAB G-TUBE SCH (13:58)
[2016-09-16] MEDS: levETIRAcetam 500 MG TAB G-TUBE SCH ×2 (13:58→20:10)
[2016-09-16] MEDS ORDERED: LISI10TA3 G-TUBE (14:00)
[2016-09-16] MEDS: SODIUM CHLORIDE 0.9% FLUSH 10 ML FLUSH IV FLUSH SCH ×2 (14:01→20:10)
--- NOTE | 2016-09-16 14:01 | HHI.DS ---
Discharge Summary Admission Date September 12, 2016 at 05:45 Discharge Date: September 17, 2016 Admitting Diagnosis UTI, GI bleed (1) GI bleed ICD Code: K92.2 Diagnosis: Principal Procedures Colonoscopy. Brief History - From Admission History from patient's at the bedside, ER physician, and review of medical records from [facility]. Patient himself is awake and alert but has significant expressive aphasia and not able to give history. reported that patient was sent from the [facility] because the nurse noted the patient was not speaking like the way he used to. He was not able to answer yes or no questions. He was not able to pronounce the name of the nurse. Apparently he was previously able to do all this. 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 this trouble with speech and total noncommunicative state was new to him. Patient stated that she did notice blood in his stool about 2 days ago as well. She stated that she was also noticing some sediments in his urine Stuart catheter and she happened to mention close to the nursing staff there. She denies any nausea or vomiting or fever. She stated patient was having diarrhea for the past few days as well. About 4-5 times a day. She is unsure of his stool color. Patient's reported that patient was at [facility] from August 13, 2016 to September 06, 2016. He was then discharged to [facility]. He was managed there for intracranial bleed. She found him in the house on the ground. It wasn't sure whether he had an intracranial bleed which led him to fall versus whether his fall led to intracranial bleed. He underwent herniotomy on to August 21, 2016. His hospitalization was complicated by pulmonary embolism and lower extremity DVT which she described as the clot in lung close to his heart with possible compromise to his heart. Possibly she is describing right heart strain. She reported that at that time, she was the one who noticed that patient was hypoxic to the 70s on room air, with tachycardia in 130s. He was not discharged on oxygen. She stated that he was doing well without oxygen there. At present while in emergency room, patient is saturating 97% on 3 L nasal cannular. CBC/BMP: 09/16/16 0637 09/16/16 0637 Significant Findings Laboratory Tests Test 09/15/16 09/15/16 09/16/16 05:19 13:24 06:37 Sodium Level 146 MEQ/L (136-145) Potassium Level 3.1 MEQ/L 3.3 MEQ/L (3.5-5.1) (3.5-5.1) Carbon Dioxide Level 33.2 MEQ/L 33.9 MEQ/L (21.0-32.0) (21.0-32.0) Random Glucose 119 MG/DL (74-106) Calcium Level 8.0 MG/DL 8.3 MG/DL 8.2 MG/DL (8.5-10.1) (8.5-10.1) (8.5-10.1) Red Blood Count 3.81 MIL/MM3 (4.50-5.90) Hematocrit 38.4 % (39.0-51.0) Mean Corpuscular Volume 100.7 FL (80.0-100.0) Mean Corpuscular Hemoglobin 35.0 PG (27.0-34.0) Creatinine 0.56 MG/DL (0.60-1.30) Vitamin B12 Level 998 PG/ML (193-986) Folate GREATER THAN 20.0 NG/ML (3.1-17.5) Imaging Last Impressions Head CT 09/12/16414 Signed Impressions: Service Date/Time: August 04:33 - CONCLUSION: 1. 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 2. Large area of decreased attenuation involving the right frontal and parietal lobes which are nonspecific but most characteristic of an area of encephalomalacia. Comparison with old outside studies would be helpful. 3. 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 4. Status post right frontal craniotomy. Antonio Root MD Chest X-Ray 09/12/16414 Signed Impressions: Service Date/Time: August 04:24 - CONCLUSION: No acute disease. Antonio Root MD Abdomen/Pelvis CT 09/12/16 0000 Signed Impressions: Service Date/Time: August 11:26 - CONCLUSION: Gallbladder is unremarkable. I cannot identify a normal or abnormal appendix. The rectum is distended with stool without wall thickening or mass. Previous pelvic surgical clips. Lawrence Mckeon MD PE at Discharge GENERAL: This is a well-nourished, well-developed patient, in no apparent distress. SKIN: No rashes, ecchymoses or lesions. Cool and dry. HEAD: Atraumatic. Normocephalic. No temporal or scalp tenderness. EYES: Pupils equal round and reactive. no scleral icterus. No injection or drainage. ENT: Nose without bleeding, purulent drainage or septal hematoma. Airway patent. NECK: Trachea midline. No JVD or lymphadenopathy. Supple, nontender, no meningeal signs. CARDIOVASCULAR: Regular rate and rhythm without murmurs, gallops, or rubs. RESPIRATORY: Clear to auscultation. Breath sounds equal bilaterally. No wheezes , rales, or rhonchi. GASTROINTESTINAL: Abdomen soft no tenderness, nondistended. No guarding. PEG in place MUSCULOSKELETAL: Extremities without clubbing, cyanosis, or edema. No calf tenderness. NEUROLOGICAL: Awake and alert. Expressive aphasia. Left facial droop. Left upper extremity and left lower extremity paralysis occasionally shows minimal wiggling of the toes Hospital Course Worsening expressive aphasia. Multifactorial. Possibly related to acute infectious process such as UTI and constipation. However in this patient with recent intracranial bleed, anticoagulation use, would need to rule out intracranial pathology. Seizure precautions. Consulted neurosurgery regarding abnormal head CT, recommends transfer to [facility] because patient falls under global postoperative period with postoperative complications. Patient's does not want patient to be transferred back to [facility]. Discussed with neurosurgery, no surgical intervention indicated at this time. will make appointment with operating surgeon outpatient. EEG without seizure. Continue Keppra. Clinically improved per family he is back to baseline UTIin patient with chronic indwelling Stuart. Discontinued Stuart catheter. Culture with Pseudomonas. S/p IV Zosyn ct Levaquin through September 19. Monitor for urinary retention GI bleed. Transfuse if hemoglobin less than 8. PPI. GI aborted colonoscopy secondary to fecal impaction which likely cause GI bleed. Patient underwent manual disimpaction and he is now stooling. We'll continue to monitor for GI bleed while on anticoagulation which was cleared by GI. Colonoscopy showed multiple polyps in the ascending colon status post polypectomy and rectal ulcer with no active bleed. Diarrhearule out C. difficile colitis in a patient with recent hospitalization and antibiotics use. Obtain C. difficile. Lactinex if persistent diarrhea. Improved Abdominal pain secondary to impaction. LFTs are also elevated, already improving. Hold statin for now. Hypertension. Restart dilan Continue to monitor with as needed antihypertensives Recent intracranial bleed on August 13, 2016. Status post craniotomy on July. Pulmonary embolism, with DVT during July 2016 hospitalizationwith what sounds like right heart strain from 's description. Currently on anticoagulation with Xarelto which will be placed on hold secondary to GI bleed. Hematology recommends anticoagulation when cleared by GI. Spoke with Dr. Joel zepeda to start Lovenox. If no further bleeding, may switch to Xarelto 5 days after Cscope DVT prophylaxisLovenox. GI prophylaxis on pantoprazole. Continue tube feedings. Pt Condition on Discharge: Stable Discharge Disposition: Rehab Inpatient Discharge Time: > 30 minutes Discharge Instructions DIET: Follow Instructions for: On Tube Feeding Activities you can perform: Regular-No Restrictions Activities to Avoid: Driving Other Activity Instructions: Fall precautions Follow up Referrals: Neurosurgery - 1 Week PCP Follow-up - 2-3 Days New Medications: Enoxaparin Inj (Lovenox Inj) 80 mg/0.8 ML Syr 70 MG SQ Q12H Prevent Blood Clot #60 INJECTION Lansoprazole ODT (Prevacid Solutab ODT) 30 Mg Tab 30 MG G-TUBE DAILY Manage Heartburn #30 TAB Levetiracetam (Keppra) 500 Mg Tab 500 MG G-TUBE Q12HR Control Seizures #60 TAB Levofloxacin (Levaquin) 500 Mg Tab 500 MG G-TUBE DAILY Infection #2 TAB Changed Medications: Lisinopril (Lisinopril) 10 Mg Tab 10 MG G-TUBE DAILY #30 Ref 0 TAB (Changed from: PO) Continued Medications: Nystatin Liq (Nystatin Liq) 100,000 unit/ml Susp 6 ML SWISH-SWAL QID Infection Ref 0 ML Edwin Lu MD September 16, 2016 14:01 Edwin Lu MD September 16, 2016 14:01
[2016-09-17 00:45] VITALS: BP 118/81; PULSE 90; RESP 16; TEMP 98.4; O2SAT 96
[2016-09-17 04:40] VITALS: BP 122/81; PULSE 89; RESP 16; TEMP 98; O2SAT 95
[2016-09-17 07:51] LABS: HEMATOCRIT 37.6 % (39.0-51.0); MEAN CELL VOLUME 101.3 FL (80.0-100.0); MEAN CORPUSCULAR HEMOGLOBIN 33.8 PG (27.0-34.0); MEAN CORPUSCULAR HGB CONC 33.4 % (32.0-36.0); PLATELET COUNT 255 TH/MM3 (150-450); RED BLOOD COUNT 3.72 MIL/MM3 (4.50-5.90); RED CELL DISTRIBUTION WIDTH 12.3 % (11.6-17.2); REVIEW FLAG FINAL; WHITE BLOOD COUNT 8.2 TH/MM3 (4.0-11.0)
[2016-09-17 08:18] LABS: BICARBONATE 28.6 MEQ/L (21.0-32.0); MAGNESIUM 2.2 MG/DL (1.5-2.5); POTASSIUM 3.8 MEQ/L (3.5-5.1)
[2016-09-17 08:20] VITALS: BP 109/72; PULSE 86; RESP 16; TEMP 97.4; O2SAT 97
[2016-09-17] MEDS ORDERED: LISINOPRIL 10 MG TAB G-TUBE SCH (09:00)
[2016-09-17] MEDS: levETIRAcetam 500 MG TAB G-TUBE SCH (09:12)
[2016-09-17] MEDS: LANSOPRAZOLE SOLUTAB 30 MG TAB G-TUBE SCH (09:12)
[2016-09-17] MEDS: SODIUM CHLORIDE 0.9% FLUSH 10 ML FLUSH IV FLUSH SCH (09:13)
[2016-09-17] MEDS: ENOXAPARIN SODIUM 80 MG/0.8 ML SYRINGE SQ SCH (09:13)
[2016-09-17] MEDS: LEVOFLOXACIN 500 MG TAB G-TUBE SCH (09:13)
[2016-09-17] MEDS: NYSTATIN SUSP 500,000 U/5 ML CUP SWISH-SWAL SCH ×2 (09:13→12:43)
[2016-09-17 09:14] VITALS: O2SAT 96
[2016-09-17 12:26] VITALS: BP 118/70; PULSE 80; RESP 18; TEMP 98.3; O2SAT 98
--- NOTE | 2016-09-17 14:46 | PD.ONC.PN ---
Subjective Subjective Remarks Afebrile overnight. patient resting in room in nad. Lovenox resumed yesterday. No reported bleeding. No family members at bedside. Objective Data Date Time Temp Pulse Resp B/P Pulse Ox O2 Delivery O2 Flow Rate FiO2 09/17/16 12:26 98.3 80 18 118/70 98 09/17/16 08:20 97.4 86 16 109/72 97 09/17/16 04:40 98.0 89 16 122/81 95 09/17/16 00:45 98.4 90 16 118/81 96 09/16/16 20:40 98.5 91 16 121/82 97 09/16/16 16:00 98.1 95 17 111/76 98 09/17/16 09/17/16 09/17/16 06:59 14:59 22:59 Intake Total 0 ml Output Total 600 ml Balance -600 ml Result Diagram: 09/17/16 0649 09/17/16 0649 Laboratory Results Laboratory Tests Test 09/17/16 06:49 White Blood Count 8.2 TH/MM3 Red Blood Count 3.72 MIL/MM3 Hemoglobin 12.6 GM/DL Hematocrit 37.6 % Mean Corpuscular Volume 101.3 FL Mean Corpuscular Hemoglobin 33.8 PG Mean Corpuscular Hemoglobin 33.4 % Concent Red Cell Distribution Width 12.3 % Platelet Count 255 TH/MM3 Mean Platelet Volume 9.2 FL Sodium Level 143 MEQ/L Potassium Level 3.8 MEQ/L Chloride Level 106 MEQ/L Carbon Dioxide Level 28.6 MEQ/L Anion Gap 8 MEQ/L Blood Urea Nitrogen 15 MG/DL Creatinine 0.58 MG/DL Estimat Glomerular Filtration 137 ML/MIN Rate Random Glucose 117 MG/DL Calcium Level 8.5 MG/DL Magnesium Level 2.2 MG/DL Administered Medications Medications (Trade) Dose Ordered Sig/Jacek Route PRN Reason Start Time Stop Time Status Last Admin Dose Admin Sodium Chloride (NS Flush) 2 ml UNSCH PRN IV FLUSH FLUSH AFTER USING IV ACCESS 09/12/16 05:45 09/13/16 17:31 Sodium Chloride (NS Flush) 2 ml BID IV FLUSH 09/12/16 09:00 09/17/16 09:13 Nystatin (Mycostatin Liq) 6 ml QID SWISH-SWAL 09/12/16 09:00 09/26/16 08:59 09/17/16 12:43 Enoxaparin Sodium (Lovenox Inj) 70 mg Q12H SQ 09/13/16 20:00 09/17/16 09:13 Levetriacetam (Keppra) 500 mg Q12HR G-TUBE 09/14/16 21:00 09/17/16 09:12 Lansoprazole (Prevacid Odt) 30 mg DAILY G-TUBE 09/15/16 09:00 09/17/16 09:12 Levofloxacin (Levaquin) 500 mg DAILY G-TUBE 09/14/16 10:00 09/19/16 09:59 09/17/16 09:13 Lisinopril (Prinivil) 10 mg DAILY G-TUBE 09/17/16 09:00 09/17/16 09:13 Objective Remarks GENERAL: Elderly female, lying supine in bed. SKIN: Warm and dry. HEAD: Normocephalic. EYES: No injection or drainage. NECK: Supple, trachea midline. CARDIOVASCULAR: +S1/S2 RESPIRATORY: Breath sounds equal bilaterally. No accessory muscle use. GASTROINTESTINAL: Abdomen soft, non-tender, nondistended. EXTREMITIES: No cyanosis NEUROLOGICAL: awake. left sided paresis. Assessment/Plan Assessment 68-year-old male admitted with AMS s/p spontaneous ICH with subsequent evacuation in july 2016 --development of PE 1 week post-op from neurosurgery--started on Xarelto --d/c'd to SNF, where he developed BRBPR --admitted to [facility] for AMS --now s/p manual disimpaction and resumed on Lovenox on 09/16. --Colonoscopy showed polyps and rectal ulcer, no active bleeding Plan 1. Anticoagulation: patient resumed on Lovenox yesterday and seems to be tolerating this quite well. Would continue on present dose of Lovenox. monitor for GIB. monitor CBC 2. will fax face sheet to new patient referrals so we can continue following this patient and make further anticoagulation recommendations outpatient. Elsy Pathak September 17, 2016 14:46
--- NOTE | 2016-09-17 14:54 | HHI.GIFU ---
Subjective Remarks Resting in bed. No n/v. No abdominal pain. No bleeding. (Leticia Camacho) Objective Vitals I&O Vital Signs Date Time Temp Pulse Resp B/P Pulse Ox O2 Delivery O2 Flow Rate FiO2 09/17/16 12:26 98.3 80 18 118/70 98 09/17/16 08:20 97.4 86 16 109/72 97 09/17/16 04:40 98.0 89 16 122/81 95 09/17/16 00:45 98.4 90 16 118/81 96 09/16/16 20:40 98.5 91 16 121/82 97 09/16/16 16:00 98.1 95 17 111/76 98 I/O 09/16/16 09/16/16 09/16/16 09/17/16 09/17/16 09/17/16 07:00 15:00 23:00 07:00 15:00 23:00 Intake Total 1140 ml 0 ml Output Total 500 ml 400 ml 450 ml 600 ml Balance -500 ml 740 ml -450 ml -600 ml Intake Oral 240 ml 0 ml IV Total 900 ml Output Urine Total 400 ml 450 ml 600 ml Stool Total 500 ml # Bowel Movements 0 0 Laboratory Laboratory Tests Test 09/17/16 06:49 White Blood Count 8.2 Red Blood Count 3.72 Hemoglobin 12.6 Hematocrit 37.6 Mean Corpuscular Volume 101.3 Mean Corpuscular Hemoglobin 33.8 Mean Corpuscular Hemoglobin 33.4 Concent Red Cell Distribution Width 12.3 Platelet Count 255 Mean Platelet Volume 9.2 Sodium Level 143 Potassium Level 3.8 Chloride Level 106 Carbon Dioxide Level 28.6 Anion Gap 8 Blood Urea Nitrogen 15 Creatinine 0.58 Estimat Glomerular Filtration 137 Rate Random Glucose 117 Calcium Level 8.5 Magnesium Level 2.2 Imaging Last Impressions Head CT 09/12/16 0415 Signed Impressions: Service Date/Time: August 04:33 - CONCLUSION: 1. 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 2. Large area of decreased attenuation involving the right frontal and parietal lobes which are nonspecific but most characteristic of an area of encephalomalacia. Comparison with old outside studies would be helpful. 3. 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 4. Status post right frontal craniotomy. Antonio Root MD Chest X-Ray 09/12/16 0415 Signed Impressions: Service Date/Time: August 04:24 - CONCLUSION: No acute disease. Antonio Root MD Abdomen/Pelvis CT 09/12/16 0000 Signed Impressions: Service Date/Time: August 11:26 - CONCLUSION: Gallbladder is unremarkable. I cannot identify a normal or abnormal appendix. The rectum is distended with stool without wall thickening or mass. Previous pelvic surgical clips. Lawrecne Mckeon MD Physical Exam HEENT: Normocephalic; atraumatic CHEST: CTA CARDIAC: RRR ABDOMEN: Soft, nondistended, nontender; no hepatosplenomegaly; bowel sounds are present in all four quadrants. EXTREMITIES: No clubbing, cyanosis, SKIN: thing, ecchymotic GLUELINE WORKER: Lethargic (Leticia Camacho) Assessment and Plan Plan ASSESSMENT - Lower GIB. Abdomen/Pelvis CT (09/12/16)----> Gallbladder is unremarkable. I cannot identify a normal or abnormal appendix. The rectum is distended with stool without wall thickening or mass. Previous pelvic surgical clips. S/P Incomplete Colonoscopy (09/13/16)----> poor prep, fecal impaction. S/P Colonoscopy (09/17/16)---> Colon polyps, Diverticulosis , Rectal ulcer. Pathology pending. No active bleeding. HH stable. Rpt. colonoscopy 1 year. - Severe constipation. Add Miralax daily PLAN - JOHN - Await pathology - Miralax 17 gram po daily - Rpt. Colonoscopy 1 year - Pt seen and examined by Dr. Cox and myself and this note is written on his behalf (Leticia Camacho) Physician Comments Patient seen and examined Agree with above Continue with current supportive care Monitor labs Okay for DC from a GI standpoint (Marcelino Cox MD) Leticia Camacho September 17, 2016 14:54 Marcelino Cox MD September 17, 2016 20:41
[2016-09-18] MEDS ORDERED: POLYETHYLENE GLYCOL 17 GM PKG PO SCH (09:00)
[2016-10-07] MEDS ORDERED: QUAD CANE/SMALL1 MI1 (12:23)
[2016-10-07] MEDS ORDERED: COMMODE 3-IN-11 MIS (12:23)
[2016-10-07] MEDS ORDERED: WHEEMIS3 (12:23)
[2016-10-08] MEDS ORDERED: DOCU100C PO (09:14)
[2016-10-08] MEDS ORDERED: IPRASOL NEB (09:14)
[2016-10-08] MEDS ORDERED: Free Water G-TUBE (09:14)
[2016-10-08] MEDS ORDERED: TEMA7.5C9 PO (09:14)
[2016-10-08] MEDS ORDERED: CARV3.125 PO (09:14)
[2016-10-08] MEDS ORDERED: SIMV10TA PO (09:14)
[2016-10-08] MEDS ORDERED: FLUT50SP EACH NARE (09:14)
[2016-10-08] MEDS ORDERED: LEVE500 PO (09:14)
== END 2016-09-17 16:27 | DRG 377 ==
LOC: NEPE 03:51 → NEDA 05:45 → NEDH 11:34 → N06A 14:29
PROVIDERS: ADMIT Internal Medicine; ATTEND Internal Medicine
PROC: 0DBP8ZX Excision of Rectum, Via Natural or Artificial Opening Endoscopic, Diagnostic (ICD-10-PCS; 2016-09-16)
PROC: 0DBM8ZX Excision of Descending Colon, Via Natural or Artificial Opening Endoscopic, Diagnostic (ICD-10-PCS; 2016-09-16)
PROC: 0DBK8ZX Excision of Ascending Colon, Via Natural or Artificial Opening Endoscopic, Diagnostic (ICD-10-PCS; principal; 2016-09-16 09:15)
DX: K92.2 Gastrointestinal hemorrhage, unspecified (principal); G93.40 Encephalopathy, unspecified; G93.89 Other specified disorders of brain; I69.359 Hemiplegia and hemiparesis following cerebral infarction affecting unspecified side; N30.00 Acute cystitis without hematuria; K62.6 Ulcer of anus and rectum; T83.511A Infection and inflammatory reaction due to indwelling urethral catheter, initial encounter; I10 Essential (primary) hypertension; D12.4 Benign neoplasm of descending colon; K62.1 Rectal polyp; K57.90 Diverticulosis of intestine, part unspecified, without perforation or abscess without bleeding; D12.2 Benign neoplasm of ascending colon; Z86.711 Personal history of pulmonary embolism; Z79.01 Long term (current) use of anticoagulants; Z85.46 Personal history of malignant neoplasm of prostate; D18.1 Lymphangioma, any site; K56.41 Fecal impaction; F17.200 Nicotine dependence, unspecified, uncomplicated; Z66 Do not resuscitate; Z86.718 Personal history of other venous thrombosis and embolism; Z93.1 Gastrostomy status; I69.321 Dysphasia following cerebral infarction; I69.320 Aphasia following cerebral infarction
CPT/HCPCS: 70450; 71010; 74176; 80048; 80053; 81001; 82550; 82607; 82746; 83735; 84484; 85014; 85018; 85025; 85027; 85610; 85730; 86850; 86900; 86901; 87077; 87086; 87186; 88305; 93005; 93306; 95819; 96374; 99211; C9113; G0463; J0696; J1650; J1953; J2270; J2543; Q9963

== ENCOUNTER 2016-12-20 06:06 | Emergency (ER) | payer MEDICARE, OTHER ==
[2016-12-20] VITALS (7 sets, daily range): BP systolic 113–188; BP diastolic 72–86; PULSE 66–73; RESP 16; O2SAT 96–100
[~2016-12-20 06:06] MED LIST: CARV3.125 PO; COMMODE 3-IN-11 MIS; DOCU100C PO; FLUT50SP EACH NARE; Free Water G-TUBE; IPRASOL NEB; LEVE500 PO; QUAD CANE/SMALL1 MI1; SIMV10TA PO; TEMA7.5C9 PO; WHEEMIS3
[2016-12-20] MEDS ORDERED: SODIUM CHLOR 0.9% 1000 ML INJ 1,000 ML IV ONE (06:26)
[2016-12-20] MEDS ORDERED: SODIUM CHLORIDE 0.9% FLUSH 10 ML FLUSH IVF PRN (06:30)
--- NOTE | 2016-12-20 06:51 | PD ---
HPI Chief Complaint: Seizure Time Seen by Provider: 06:26 Travel History International Travel<30 days: No Contact w/Intl Traveler<30days: No Traveled to known affect area: No History of Present Illness HPI The patient is a 71-year-old male who presents to the emergency department via EMS after his witnessed him to have a seizure. According to EMS the patient sleeps in another room, the heard a commotion and when she entered the room the patient appeared to be having a seizure. The patient does not recall the events, however, he denies any history of seizures. The patient did recently suffer a CVA which left him weak on the left side of the body, arm greater than the leg. The patient denies any current complaints including urinary continence or tongue trauma. He denies any headache, chest pain, shortness of breath, nausea, vomiting, or abdominal pain. The patient's symptoms are mild to moderate, no known alleviating or exacerbating factors. The patient does not know his medications and EMS did not bring a list. PFSH Past Medical History Arthritis: Yes Asthma: No Anxiety: No Depression: No Heart Rhythm Problems: No Cancer: Yes (prostate) Cardiovascular Problems: Yes High Cholesterol: No Chemotherapy: No Chest Pain: No Congestive Heart Failure: No COPD: No Cerebrovascular Accident: Yes Endocrine: No GERD: No Genitourinary: Yes Hiatal Hernia: No Hypertension: Yes Immune Disorder: No Kidney Stones: No Musculoskeletal: Yes Neurologic: Yes Psychiatric: No Reproductive: No Respiratory: Yes (pulmonary embolism) Migraines: No Radiation Therapy: No Renal Failure: No Seizures: Yes Sleep Apnea: No Ulcer: Yes (rectum ulcer ) Past Surgical History Abdominal Surgery: No AICD: No Arteriovenous Shunt: No Body Medical Devices: G-tube Cardiac Surgery: No Ear Surgery: No Endocrine Surgery: No Eye Surgery: No Genitourinary Surgery: No Gynecologic Surgery: No Insulin Pump: No Joint Replacement: No Oral Surgery: No Pacemaker: No Thoracic Surgery: Yes (Colonscopy ) Other Surgery: Yes (CRANIECTOMY 08/22, PEG TUBE 07/2016) Social History Alcohol Use: No Tobacco Use: No Substance Use: No Allergies-Medications (Allergen,Severity, Reaction): Coded Allergies: No Known Allergies (Unverified , 09/12/16) Reported Meds & Prescriptions Reported Meds & Active Scripts Active Keppra (Levetiracetam) 500 Mg Tab 500 Mg PO Q12HR Fluticasone Nasal [place] 50 Mcg/Act Naspr 2 [place] EACH NARE DAILY 14 Days Coreg (Carvedilol) 3.125 Mg Tab 3.125 Mg PO Q12HR 30 Days Simvastatin 10 Mg Tab 10 Mg PO DAILY Commode 3-in-1 (Device) 1 Mis Mis 1 Ea .ROUTE DIRECTED Review of Systems Except as stated in HPI: all other systems reviewed are Neg General / Constitutional: No: Fever Cardiovascular: No: Chest Pain or Discomfort Respiratory: No: Shortness of Breath Gastrointestinal: No: Nausea, Vomiting Neurologic: Positive: Seizures (according to EMS), No: Headache Physical Exam Narrative GENERAL: Awake, alert, pleasant 71-year-old male who appears his stated age and is in no acute respiratory distress. SKIN: Focused skin assessment warm/dry. HEAD: Atraumatic. Normocephalic. EYES: Pupils equal and round. Pupils are 4 mm bilateral and reactive. He has difficulty closing the left eye eyelid completely. ENT: No nasal bleeding or discharge. Mucous membranes pink and moist. NECK: Trachea midline. No JVD. CARDIOVASCULAR: Regular rate and rhythm. No murmur appreciated. RESPIRATORY: No accessory muscle use. Clear to auscultation. Breath sounds equal bilaterally. GASTROINTESTINAL: Abdomen soft, non-tender, nondistended. MUSCULOSKELETAL: Contractures of the left upper extremity noted. NEUROLOGICAL: Awake and alert. Asymmetric smile with left facial droop. Difficulty closing the left eyelid completely. Eyebrows rise symmetrically. Contractures noted of the left hand with limited range of motion the left upper extremity. No drift of the legs. Full range of motion right upper extremity. Minimal dysarthria, however, patient states speech sounds normal since the stroke. PSYCHIATRIC: Appropriate mood and affect; insight and judgment normal. Data Data Last Documented VS Vital Signs Date Time Temp Pulse Resp B/P (MAP) Pulse Ox O2 Delivery O2 Flow Rate FiO2 12/20/16 12:36 12/20/16 12:34 69 16 100 Room Air 12/20/16 10:15 2.00 Orders Orders Complete Blood Count With Diff (12/20/16 06:26) Electrocardiogram (12/20/16 ) Ct Brain W/O Iv Contrast(Rout) (12/20/16 ) Blood Glucose (12/20/16 06:26) Ecg Monitoring (12/20/16 06:26) Iv Access Insert/Monitor (12/20/16 06:26) Oximetry (12/20/16 06:26) Comprehensive Metabolic Panel (12/20/16 06:26) Sodium Chlor 0.9% 1000 Ml Inj (Ns 1000 M (12/20/16 06:26) Sodium Chloride 0.9% Flush (Ns Flush) (12/20/16 06:30) Ua Includes Microscopic (12/20/16 06:26) Lactic Acid (12/20/16 06:26) Levetiracetam 1000 Mg Inj (Keppra 1000 M (12/20/16 07:15) Labs Laboratory Tests Test 12/20/16 06:35 12/20/16 07:00 12/20/16 07:50 White Blood Count 5.8 TH/MM3 Red Blood Count 4.12 MIL/MM3 Hemoglobin 14.5 GM/DL Hematocrit 42.4 % Mean Corpuscular Volume 102.9 FL Mean Corpuscular Hemoglobin 35.1 PG Mean Corpuscular Hemoglobin Concent 34.1 % Red Cell Distribution Width 13.1 % Platelet Count 151 TH/MM3 Mean Platelet Volume 8.6 FL Neutrophils (%) (Auto) 64.3 % Lymphocytes (%) (Auto) 23.0 % Monocytes (%) (Auto) 9.5 % Eosinophils (%) (Auto) 2.5 % Basophils (%) (Auto) 0.7 % Neutrophils # (Auto) 3.7 TH/MM3 Lymphocytes # (Auto) 1.3 TH/MM3 Monocytes # (Auto) 0.6 TH/MM3 Eosinophils # (Auto) 0.1 TH/MM3 Basophils # (Auto) 0.0 TH/MM3 CBC Comment DIFF FINAL Differential Comment Blood Urea Nitrogen 22 MG/DL Creatinine 1.13 MG/DL Random Glucose 101 MG/DL Total Protein 7.2 GM/DL Albumin 3.4 GM/DL Calcium Level 8.7 MG/DL Alkaline Phosphatase 88 U/L Aspartate Amino Transf (AST/SGOT) 12 U/L Alanine Aminotransferase (ALT/SGPT) 19 U/L Total Bilirubin 0.4 MG/DL Sodium Level 142 MEQ/L Potassium Level 4.2 MEQ/L Chloride Level 106 MEQ/L Carbon Dioxide Level 27.1 MEQ/L Anion Gap 9 MEQ/L Estimat Glomerular Filtration Rate 64 ML/MIN Lactic Acid Level 1.2 mmol/L Urine Color YELLOW Urine Turbidity CLEAR Urine pH 6.5 Urine Specific [place] 1.015 Urine Protein NEG mg/dL Urine Glucose (UA) NEG mg/dL Urine Ketones NEG mg/dL Urine Occult Blood NEG Urine Nitrite NEG Urine Bilirubin NEG Urine Urobilinogen LESS THAN 2.0 MG/DL Urine Leukocyte Esterase NEG Urine RBC LESS THAN 1 /hpf Urine WBC LESS THAN 1 /hpf Urine Hyaline Casts 1 /lpf Urine Mucus FEW /lpf MDM Medical Decision Making Medical Screen Exam Complete: Yes Emergency Medical Condition: Yes Medical Record Reviewed: Yes Differential Diagnosis Differential diagnosis includes seizure, ICH, hyponatremia, hypocalcemia, post CVA seizure, syncope, arrhythmia. Narrative Course IV was established, labs are drawn and sent, and the patient was placed on cardiac telemetry monitoring and continuous pulse oximetry monitoring. EKG was ordered and interpreted. Noncontrast CT of the brain was obtained. I had a discussion with the when she arrived, the patient had an intracranial hemorrhage approximately 4 months ago, she states she was hospitalized for 10 weeks. The patient was taking Keppra, was taken off of the Keppra approximately 4 weeks ago, they have not followed up with her neurologist on an outpatient basis. The states that she could only visualize the upper part of the body shaking, however, he had a blanket over his legs. The estimates the seizure lasted 2-3 minutes. The patient was signed out to the oncoming physician at [address] and laboratory evaluation pending. The patient may need 23 hour observation versus consultation with neurology to evaluate if the patient should be placed back on seizure medications. Diagnosis Primary Impression: Seizure Scripts Levetiracetam (Keppra) 500 Mg Tab 500 MG PO Q12HR for Control Seizures, #60 TAB Prov: Pop Fisher MD 12/20/16 Condition: Stable Tobias Arrington MD Dec 20, 2016 06:51
--- NOTE | 2016-12-20 06:57 | RADRPT ---
EXAM DATE/TIME: 12/20/2016 06:45 [facility] COMPARISON: CT BRAIN W/O CONTRAST, September 30, 2016, 16:03. INDICATIONS : Seizure. RADIATION DOSE: 35.34 CTDIvol (mGy) MEDICAL HISTORY : Cerebrovascular disease. Hypertension. SURGICAL HISTORY : Craniotomy. ENCOUNTER: Initial ACUITY: 1 day PAIN SCALE: 0/10 LOCATION: cranial TECHNIQUE: Multiple contiguous axial images were obtained of the head. Using automated exposure control and adj ustment of the mA and/or kV according to patient size, radiation dose was kept as low as reasonably a chievable to obtain optimal diagnostic quality images. DICOM format image data is available [facility] for review and comparison. FINDINGS: CEREBRUM: The ventricles are normal for age. The patient has prominent subdural hygromas involving the right fr ontal and right parietal regions, both new since the . The right frontal subdural hygroma measur es 1.5 cm across. The right parietal one measures 11 mm. The complex subdural hygroma seen on the le ft in September is clearly smaller. No acute hemorrhage is identified. There some residual encephalomalac ia in the right frontal lobe superiorly underneath the craniotomy defect. The right temporal arachnoi d cyst remain. POSTERIOR FOSSA: The cerebellum and brainstem are intact. The 4th ventricle is midline. The cerebellopontine angle i s unremarkable. EXTRACRANIAL: The visualized portion of the orbits is intact. SKULL: No evidence of skull fracture. CONCLUSION: Prominent subdural hygromas on the right and resolving chronic subdural on the left. The right subdu ral hygromas are new since September. Evolving encephalomalacia in the right frontal lobe status post cracking unit operator niotomy. No acute hemorrhage is seen. Lawrence Mckeon MD on December 20, 2016 at 6:52 Board Certified Radiologist. This report was verified electronically.
[2016-12-20 07:14] LABS: AUTOMATED NEUTROPHIL # 3.7 TH/MM3 (1.8-7.7); BASOPHIL % 0.7 % (0.0-2.0); EOSINOPHIL # 0.1 TH/MM3 (0-0.4); EOSINOPHIL % 2.5 % (0.0-4.0); HEMATOCRIT 42.4 % (39.0-51.0); HEMO FLAGS DIFF FINAL; LYMPHOCYTE # 1.3 TH/MM3 (1.0-4.8); MEAN CELL VOLUME 102.9 FL (80.0-100.0); MEAN CORPUSCULAR HEMOGLOBIN 35.1 PG (27.0-34.0); MEAN CORPUSCULAR HGB CONC 34.1 % (32.0-36.0); MONO % 9.5 % (0.0-8.0); NEUT % 64.3 % (16.0-70.0); PLATELET COUNT 151 TH/MM3 (150-450); RED BLOOD COUNT 4.12 MIL/MM3 (4.50-5.90); RED CELL DISTRIBUTION WIDTH 13.1 % (11.6-17.2); WHITE BLOOD COUNT 5.8 TH/MM3 (4.0-11.0)
[2016-12-20] MEDS ORDERED: levETIRAcetam 1000 MG INJ 100 ML IV ONE (07:15)
[2016-12-20 07:47] LABS: ALT (GPT) 19 U/L (12-78); ANION GAP 9 MEQ/L (5-15); AST (GOT) 12 U/L (15-37); BICARBONATE 27.1 MEQ/L (21.0-32.0); BLOOD UREA NITROGEN 22 MG/DL (7-18); CHLORIDE 106 MEQ/L (98-107); GLOMERULAR FILTRATION RATE 64 ML/MIN (>89); POTASSIUM 4.2 MEQ/L (3.5-5.1); SODIUM (NA) 142 MEQ/L (136-145)
[2016-12-20 07:49] LABS: ALKALINE PHOSPHATASE 88 U/L (45-117); TOTAL BILIRUBIN ADULT 0.4 MG/DL (0.2-1.0)
[2016-12-20 08:20] LABS: BLOOD, URINE NEG (NEG); GLUCOSE,URINE NEG (NEG); HYALINE CAST, URINE 1 /lpf (RARE); KETONE, URINE NEG (NEG); MUCUS URINE FEW /lpf (OCC); NITRITE,URINE NEG (NEG); PH, URINE 6.5 (5.0-8.5); URINE COLOR YELLOW (YELLW/STRAW)
[2016-12-20] MEDS ORDERED: LEVE500 PO (11:27)
--- NOTE | 2016-12-20 11:34 | PD ---
Data Data Last Documented VS Vital Signs Date Time Temp Pulse Resp B/P (MAP) Pulse Ox O2 Delivery O2 Flow Rate FiO2 12/20/16 10:15 72 16 125/72 (89) 100 Nasal Cannula 2.00 Orders Orders Complete Blood Count With Diff (12/20/16 06:26) Electrocardiogram (12/20/16 ) Ct Brain W/O Iv Contrast(Rout) (12/20/16 ) Blood Glucose (12/20/16 06:26) Ecg Monitoring (12/20/16 06:26) Iv Access Insert/Monitor (12/20/16 06:26) Oximetry (12/20/16 06:26) Comprehensive Metabolic Panel (12/20/16 06:26) Sodium Chlor 0.9% 1000 Ml Inj (Ns 1000 M (12/20/16 06:26) Sodium Chloride 0.9% Flush (Ns Flush) (12/20/16 06:30) Ua Includes Microscopic (12/20/16 06:26) Lactic Acid (12/20/16 06:26) Levetiracetam 1000 Mg Inj (Keppra 1000 M (12/20/16 07:15) Labs Laboratory Tests Test 12/20/16 06:35 12/20/16 07:00 12/20/16 07:50 White Blood Count 5.8 TH/MM3 Red Blood Count 4.12 MIL/MM3 Hemoglobin 14.5 GM/DL Hematocrit 42.4 % Mean Corpuscular Volume 102.9 FL Mean Corpuscular Hemoglobin 35.1 PG Mean Corpuscular Hemoglobin Concent 34.1 % Red Cell Distribution Width 13.1 % Platelet Count 151 TH/MM3 Mean Platelet Volume 8.6 FL Neutrophils (%) (Auto) 64.3 % Lymphocytes (%) (Auto) 23.0 % Monocytes (%) (Auto) 9.5 % Eosinophils (%) (Auto) 2.5 % Basophils (%) (Auto) 0.7 % Neutrophils # (Auto) 3.7 TH/MM3 Lymphocytes # (Auto) 1.3 TH/MM3 Monocytes # (Auto) 0.6 TH/MM3 Eosinophils # (Auto) 0.1 TH/MM3 Basophils # (Auto) 0.0 TH/MM3 CBC Comment DIFF FINAL Differential Comment Blood Urea Nitrogen 22 MG/DL Creatinine 1.13 MG/DL Random Glucose 101 MG/DL Total Protein 7.2 GM/DL Albumin 3.4 GM/DL Calcium Level 8.7 MG/DL Alkaline Phosphatase 88 U/L Aspartate Amino Transf (AST/SGOT) 12 U/L Alanine Aminotransferase (ALT/SGPT) 19 U/L Total Bilirubin 0.4 MG/DL Sodium Level 142 MEQ/L Potassium Level 4.2 MEQ/L Chloride Level 106 MEQ/L Carbon Dioxide Level 27.1 MEQ/L Anion Gap 9 MEQ/L Estimat Glomerular Filtration Rate 64 ML/MIN Lactic Acid Level 1.2 mmol/L Urine Color YELLOW Urine Turbidity CLEAR Urine pH 6.5 Urine Specific [place] 1.015 Urine Protein NEG mg/dL Urine Glucose (UA) NEG mg/dL Urine Ketones NEG mg/dL Urine Occult Blood NEG Urine Nitrite NEG Urine Bilirubin NEG Urine Urobilinogen LESS THAN 2.0 MG/DL Urine Leukocyte Esterase NEG Urine RBC LESS THAN 1 /hpf Urine WBC LESS THAN 1 /hpf Urine Hyaline Casts 1 /lpf Urine Mucus FEW /lpf MDM Supervised Visit with TOD: No Narrative Course This case is checked out to me by Dr. Arrington at 7 AM. I reviewed the entirety of the workup with him multiple times and answered their questions. There is concern because today's CAT scan shows significant increase in a hygroma size on the right side from the prior. I reviewed in detail with radiologist as well as neurosurgeon Dr. Stevenson Seems most likely that sometime last 2 months he had some rebleeding but there is no acute blood in there now. It is all uniform hygroma. Dr. Stevenson as recommended he follow up with Dr. Mclain who did his craniotomy earlier this year. His has spoken with their office on the phone while there in the emergency department and he will follow-up with them. He needs neurology follow-up as well I have refilled his Keppra for one month He should discuss this with his family physician as well. He is stable for outpatient follow-up. Has not had any seizure activity in the many hours he's been monitored here Diagnosis Primary Impression: Seizure Additional Impression: Nontraumatic subdural hygroma Additional Instruction: Follow-up with neurology and neurosurgeon and primary physician Restart Keppra Med/Other Pt SpecificInfo: Prescription(s) given Scripts Levetiracetam (Keppra) 500 Mg Tab 500 MG PO Q12HR for Control Seizures, #60 TAB Prov: Pop Fisher MD 12/20/16 Disposition: 01 DISCHARGE HOME Condition: Stable Pop Fisher MD Dec 20, 2016 11:34
--- NOTE | 2016-12-20 11:51 | EKG ---
Date Performed: 12/20/2016 Time Performed: 06:31:39 PTAGE: 71 years EKG: Sinus rhythm LOW QRS VOLTAGE IN EXTREMITY LEADS BORDERLINE ECG Compared to prior tracing no significant change PREVIOUS TRACING : 09/12/2016 05.07 DOCTOR: Ezekiel Alegria Interpretating Date/Time 12/20/2016 11:45:48
== END 2016-12-20 12:38 | disposition home or self-care (01) ==
LOC: NEPC 06:06
DX: R56.9 Unspecified convulsions (principal); D18.1 Lymphangioma, any site; M13.80 Other specified arthritis, unspecified site; I10 Essential (primary) hypertension; Z86.711 Personal history of pulmonary embolism; Z86.73 Personal history of transient ischemic attack (TIA), and cerebral infarction without residual deficits; Z85.46 Personal history of malignant neoplasm of prostate; Z79.899 Other long term (current) drug therapy
CPT/HCPCS: 70450; 80053; 81001; 83605; 85025; 93005; 96374; 99285; J1953; J7030

== ENCOUNTER 2017-01-15 09:40 | Emergency (ER) | payer OTHER ==
[~2017-01-15] VITALS: Ht 177.8 cm; Wt 68.1 kg
[~2017-01-15 09:40] MED LIST changes: -DOCU100C PO; -Free Water G-TUBE; -IPRASOL NEB; -QUAD CANE/SMALL1 MI1; -TEMA7.5C9 PO; -WHEEMIS3
[2017-01-15 09:43] VITALS: BP 133/79; PULSE 90; RESP 24; TEMP 98.4; O2SAT 98
--- NOTE | 2017-01-15 09:50 | PD ---
HPI Chief Complaint: Edema Time Seen by Provider: 09:50 Travel History International Travel<30 days: No Contact w/Intl Traveler<30days: No Traveled to known affect area: No History of Present Illness HPI 71-year-old male came to the emergency room brought by his sent by the primary care for left leg swelling that started over past 2 days. Patient has history of DVT and PE in the past. Patient was prolonged hospitalization just couple months ago for a head bleed followed by GI bleed after he was put on blood thinners for DVT and PE. This eventually led to the insertion of an IVC filter and the anticoagulant was stopped. Patient has left-sided hemiparesis which prevents him from walking too much and they noticed the left leg swelling up over past couple days. His took him to the primary care's office who sent the patient to the emergency room to rule out DVT. Patient says he has some pain when he tries to ambulate. Vital signs are stable. No history of shortness of breath or chest pain. PFSH Past Medical History Narrative Medical List of his past medical, surgical, social and family history is reviewed from the nursing note. Arthritis: Yes Asthma: No Anxiety: No Depression: No Heart Rhythm Problems: No Cancer: Yes (prostate) Cardiovascular Problems: Yes High Cholesterol: No Chemotherapy: No Chest Pain: No Congestive Heart Failure: No COPD: No Cerebrovascular Accident: Yes (4MONTH AGO) Endocrine: No GERD: No Genitourinary: Yes Hiatal Hernia: No Hypertension: Yes Immune Disorder: No Kidney Stones: No Musculoskeletal: Yes Neurologic: Yes Psychiatric: No Reproductive: No Respiratory: Yes (pulmonary embolism) Immunizations Current: No Migraines: No Radiation Therapy: No Renal Failure: No Seizures: Yes Sleep Apnea: No Ulcer: Yes (rectum ulcer ) Past Surgical History Abdominal Surgery: No AICD: No Arteriovenous Shunt: No Body Medical Devices: G-tube Cardiac Surgery: No Ear Surgery: No Endocrine Surgery: No Eye Surgery: No Genitourinary Surgery: No Gynecologic Surgery: No Insulin Pump: No Joint Replacement: No Oral Surgery: No Pacemaker: No Thoracic Surgery: Yes (Colonscopy ) Other Surgery: Yes (CRANIOTOMY) Social History Alcohol Use: No Tobacco Use: No Substance Use: No Allergies-Medications (Allergen,Severity, Reaction): Coded Allergies: No Known Allergies (Unverified , 09/12/16) Comments No known allergies. Reported Meds & Prescriptions Reported Meds & Active Scripts Active Keppra (Levetiracetam) 500 Mg Tab 500 Mg PO Q12HR Fluticasone Nasal [place] 50 Mcg/Act Naspr 2 [place] EACH NARE DAILY 14 Days Coreg (Carvedilol) 3.125 Mg Tab 3.125 Mg PO Q12HR 30 Days Simvastatin 10 Mg Tab 10 Mg PO DAILY Commode 3-in-1 (Device) 1 Mis Mis 1 Ea .ROUTE DIRECTED Reported B12 (Cyanocobalamin) 1,000 Mcg Tab D3 (Cholecalciferol) 1,000 Unit Cap Doxycycline Hyclate 100 Mg Cap 100 Mg PO BID Narrative Medication List of his home medications reviewed from the nursing note. Review of Systems Except as stated in HPI: all other systems reviewed are Neg Physical Exam Narrative GENERAL: Awake, alert, elderly, mild distress SKIN: Focused skin assessment warm/dry. Left cheek surgical incision with stitches. Wound looks to be healing well. No redness or discharge. HEAD: Atraumatic. Normocephalic. EYES: Pupils equal and round. No scleral icterus. No injection or drainage. ENT: No nasal bleeding or discharge. Mucous membranes pink and moist. NECK: Trachea midline. No JVD. CARDIOVASCULAR: Regular rate and rhythm. No murmur appreciated. RESPIRATORY: No accessory muscle use. Clear to auscultation. Breath sounds equal bilaterally. GASTROINTESTINAL: Abdomen soft, non-tender, nondistended. Hepatic and splenic margins not palpable. MUSCULOSKELETAL: No obvious deformities. No clubbing. No cyanosis. Left leg 2 + edema NEUROLOGICAL: Awake and alert. No obvious cranial nerve deficits. Motor grossly within normal limits. Normal speech. PSYCHIATRIC: Appropriate mood and affect; insight and judgment normal. Data Data Last Documented VS Vital Signs Date Time Temp Pulse Resp B/P (MAP) Pulse Ox O2 Delivery O2 Flow Rate FiO2 01/15/17 12:22 70 15 111/68 (82) 97 01/15/17 09:43 98.4 Room Air Orders Orders Us Leg Venous Doppler (01/15/17 ) Heparin Inj (Heparin Inj) (01/15/17 18:00) Heparin Inj (Heparin Inj) (01/15/17 18:00) MDM Medical Decision Making Medical Screen Exam Complete: Yes Emergency Medical Condition: Yes Medical Record Reviewed: Yes Differential Diagnosis DVT, dependent edema Narrative Course 12 PM ultrasound is positive for DVT. However given the fact the patient has an IVC no further treatment or workup is required at this point. I gave the patient and his instructions to follow to keep the swelling down. They understand and they're comfortable going home. Procedures EKG Prior to Arrival: No Diagnosis Primary Impression: DVT (deep venous thrombosis) Qualified Codes: I82.432 - Acute embolism and thrombosis of left popliteal vein Additional Impression: Presence of IVC filter Referrals: Primary Care Physician 3 days Additional Instructions: Please return to the ER if the condition worsens or any other new concerns. He has a DVT in his left leg. However he also has the IVC filter that will prevent the blood clot from traveling into his lungs. The leg elevated above the heart level to keep the swelling down. Use compression stockings at all times. Take Tylenol for pain. Follow-up with primary care in couple days. Med/Other Pt SpecificInfo: No Change to Meds Disposition: 01 DISCHARGE HOME Condition: Stable Luis Woodward MD Jan 15, 2017 09:50
[2017-01-15] MEDS ORDERED: CYAN1TAB24 (10:27)
[2017-01-15] MEDS ORDERED: D31000CA (10:27)
[2017-01-15] MEDS ORDERED: DOXY100C PO (10:27)
--- NOTE | 2017-01-15 11:28 | RADRPT ---
EXAM DATE/TIME: 01/15/2017 10:36 [facility] COMPARISON: No previous studies available for comparison. INDICATIONS : Left leg swelling. History of recent DVT. MEDICAL HISTORY : Seizures. Hypertension. Deep venous thrombosis. Cerebrovascular accident. Head trauma. Pulmonary e mbolism. Diverticulosis. Rectal ulcer. Prostate cancer. Measles. Arthritis. SURGICAL HISTORY : Prostatectomy. Craniotomy. IVC filter placement. ENCOUNTER: Subsequent ACUITY: 4 - 6 months PAIN SCORE: 2/10 LOCATION: Left leg. TECHNIQUE: Venous ultrasound of the leg was performed from the inguinal ligament to the proximal calf. Real-moe e, color Doppler and spectral tracing, compression and augmentation techniques were used. FINDINGS: Nonocclusive and occlusive deep venous thrombus scattered throughout the deep venous system into the iliac. Nonocclusive is present in the popliteal vein. The bulk of this appears acute. CONCLUSION: Degree of thrombus for the most part acute. Matthias Huston MD FACR on January 15, 2017 at 11:26 Board Certified Radiologist. This report was verified electronically.
[2017-01-15 12:22] VITALS: BP 111/68
[2017-01-15] MEDS ORDERED: HEPARIN SODIUM - IV 10,000 UNITS/10 ML VIAL IV PRN (18:00)
[2017-01-15] MEDS ORDERED: HEPARIN - 10,000 UNITS/ML IV ADDITIVE IV PRN (18:00)
== END 2017-01-15 12:22 | disposition home or self-care (01) ==
LOC: NEPC 09:40
DX: I82.432 Acute embolism and thrombosis of left popliteal vein (principal)
CPT/HCPCS: 93971; 99284

== ENCOUNTER 2017-01-20 15:12 | Emergency (ER) | payer OTHER ==
[~2017-01-20] VITALS: Ht 180.3 cm; Wt 68.0 kg
[~2017-01-20 15:12] MED LIST changes: +CYAN1TAB24; +D31000CA; +DOXY100C PO
[2017-01-20 15:13] VITALS: BP 159/92; PULSE 97; RESP 17; TEMP 98.4; O2SAT 98
--- NOTE | 2017-01-20 15:53 | PD ---
Physical Exam Date Seen by Provider: Jan 20, 2017 Time Seen by Provider: 15:52 Narrative 71 yo male here for left leg pain and swelling. Diagnosed with DVT on the . Taking meds. Worsening swelling. Comes here for evaluation of it. Pain is 8/10. No allergies. Vitals are stable in triage. Awaiting bed placement. Data Data Last Documented VS Vital Signs Date Time Temp Pulse Resp B/P (MAP) Pulse Ox O2 Delivery O2 Flow Rate FiO2 01/20/17 15:13 98.4 97 17 159/92 (114) 98 Orders Orders Complete Blood Count With Diff (01/20/17 15:51) Basic Metabolic Panel (Bmp) (01/20/17 15:51) Prothrombin Time / Inr (Pt) (01/20/17 15:51) Act Partial Throm Time (Ptt) (01/20/17 15:51) Magnesium (Mg) (01/20/17 15:51) Us Leg Venous Doppler (01/20/17 ) [facility] Medical Record Reviewed: Yes Supervised Visit with TOD: No Beni Lea Jan 20, 2017 15:53
--- NOTE | 2017-01-20 16:24 | PD ---
HPI Chief Complaint: Injury Time Seen by Provider: 16:24 Travel History International Travel<30 days: No Contact w/Intl Traveler<30days: No Traveled to known affect area: No History of Present Illness HPI Patient is a 71 old male with history of hemorrhagic stroke, prostate cancer, DVT, PE presenting to the ER with edematous left leg. The patient states that he was in the hospital last week where a DVT was found in his left leg. The patient decided to leave the hospital without seeking treatment. He is high risk for anticoagulation therapy with history of hemorrhagic stroke and GI bleed. The patient denies SOB, chest pain, headaches, recent visual changes, new neurological/focal deficits, hematemesis, hematochezia, abdominal pain, melena, nausea, vomiting. The patient's describes that he has some aphasia that is from after the stroke. He also has an IVC filter in place from previous PE. PMH:Hemorrhagic stroke, prostate cancer, DVT, seizures Meds: Simvastatin, Kepra PFSH Past Medical History Arthritis: Yes Asthma: No Anxiety: No Depression: No Heart Rhythm Problems: No Cancer: Yes (prostate) Cardiovascular Problems: Yes High Cholesterol: No Chemotherapy: No Chest Pain: No Congestive Heart Failure: No COPD: No Cerebrovascular Accident: Yes Endocrine: No Gastrointestinal Disorders: Yes (diverticulosis) GERD: No Genitourinary: Yes Hiatal Hernia: No Hypertension: Yes Immune Disorder: No Implanted Vascular Access Dvce: Yes Kidney Stones: No Musculoskeletal: Yes Neurologic: Yes Psychiatric: No Reproductive: No Respiratory: Yes (pulmonary embolism) Immunizations Current: No Migraines: No Radiation Therapy: No Renal Failure: No Seizures: Yes Sleep Apnea: No Ulcer: Yes (rectum ulcer ) Past Surgical History Abdominal Surgery: No AICD: No Arteriovenous Shunt: No Body Medical Devices: G-tube Cardiac Surgery: No Ear Surgery: No Endocrine Surgery: No Eye Surgery: No Genitourinary Surgery: No Gynecologic Surgery: No Insulin Pump: No Joint Replacement: No Neurologic Surgery: Yes (S/P Craniotomy ) Oral Surgery: No Pacemaker: No Thoracic Surgery: Yes (Colonscopy ) Other Surgery: Yes (CRANIOTOMY) Social History Alcohol Use: No Tobacco Use: No Substance Use: No Allergies-Medications (Allergen,Severity, Reaction): Coded Allergies: No Known Allergies (Unverified , 01/20/17) Reported Meds & Prescriptions Reported Meds & Active Scripts Active Keppra (Levetiracetam) 500 Mg Tab 500 Mg PO Q12HR Fluticasone Nasal [place] 50 Mcg/Act Naspr 2 [place] EACH NARE DAILY 14 Days Coreg (Carvedilol) 3.125 Mg Tab 3.125 Mg PO Q12HR 30 Days Simvastatin 10 Mg Tab 10 Mg PO DAILY Reported B12 (Cyanocobalamin) 1,000 Mcg Tab D3 (Cholecalciferol) 1,000 Unit Cap Review of Systems Except as stated in HPI: all other systems reviewed are Neg Physical Exam Narrative GENERAL: In no acute distress SKIN: Warm and dry. HEAD: Atraumatic. Normocephalic. EYES: Pupils equal and round. No scleral icterus. No injection or drainage. ENT: No nasal bleeding or discharge. Mucous membranes pink and moist. NECK: Trachea midline. No JVD. CARDIOVASCULAR: Regular rate and rhythm. RESPIRATORY: No accessory muscle use. Clear to auscultation. Breath sounds equal bilaterally. GASTROINTESTINAL: Abdomen soft, non-tender, nondistended. Hepatic and splenic margins not palpable. MUSCULOSKELETAL: Left extremity with edema and swelling from the inguinal crease distally. Brisk capillary refill throughout. Pulses difficult to palpate through edema on left but has strong doppler signal. No breakdown of skin. PMS intact in all four extremities. NEUROLOGICAL: Awake and alert. No obvious cranial nerve deficits. Motor grossly within normal limits. Five out of 5 muscle strength in the arms and legs. Normal speech. PSYCHIATRIC: Appropriate mood and affect; insight and judgment normal. Data Data Last Documented VS Vital Signs Date Time Temp Pulse Resp B/P (MAP) Pulse Ox O2 Delivery O2 Flow Rate FiO2 01/20/17 19:04 01/20/17 16:29 95 20 100 Room Air 01/20/17 15:13 98.4 Orders Orders Complete Blood Count With Diff (01/20/17 15:51) Basic Metabolic Panel (Bmp) (01/20/17 15:51) Prothrombin Time / Inr (Pt) (01/20/17 15:51) Act Partial Throm Time (Ptt) (01/20/17 15:51) Magnesium (Mg) (01/20/17 15:51) Fleets Enema (Adult) (Fleets Enema (Adul (01/20/17 18:30) Labs Laboratory Tests Test 01/20/17 16:35 White Blood Count 9.2 TH/MM3 Red Blood Count 3.70 MIL/MM3 Hemoglobin 12.7 GM/DL Hematocrit 37.8 % Mean Corpuscular Volume 102.3 FL Mean Corpuscular Hemoglobin 34.3 PG Mean Corpuscular Hemoglobin Concent 33.6 % Red Cell Distribution Width 13.0 % Platelet Count 222 TH/MM3 Mean Platelet Volume 8.4 FL Neutrophils (%) (Auto) 71.9 % Lymphocytes (%) (Auto) 14.7 % Monocytes (%) (Auto) 10.4 % Eosinophils (%) (Auto) 2.2 % Basophils (%) (Auto) 0.8 % Neutrophils # (Auto) 6.6 TH/MM3 Lymphocytes # (Auto) 1.4 TH/MM3 Monocytes # (Auto) 1.0 TH/MM3 Eosinophils # (Auto) 0.2 TH/MM3 Basophils # (Auto) 0.1 TH/MM3 CBC Comment DIFF FINAL Differential Comment Prothrombin Time 9.8 SEC Prothromb Time International Ratio 0.9 RATIO Activated Partial Thromboplast Time 21.3 SEC Blood Urea Nitrogen 21 MG/DL Creatinine 0.86 MG/DL Random Glucose 123 MG/DL Calcium Level 9.4 MG/DL Magnesium Level 2.2 MG/DL Sodium Level 138 MEQ/L Potassium Level 4.5 MEQ/L Chloride Level 102 MEQ/L Carbon Dioxide Level 31.1 MEQ/L Anion Gap 5 MEQ/L Estimat Glomerular Filtration Rate 87 ML/MIN MDM Medical Decision Making Medical Screen Exam Complete: Yes Emergency Medical Condition: Yes Differential Diagnosis DVT, Hypercoagulable, high risk for anticoagulation. Narrative Course Patient roomed in ED. I have reviewed the records particularly from Dr. Kerr. Patient was at [facility] in late july for hemorrhagic stroke , apparently not-provoked. He underwent emergent craniotomy and then his post operative course was complicated by a submassive PE. He was started on xarelto after which he developed severe and possibly life threatening GI bleed. Seen a few days ago and determined by Dr. Woodward that the risks of anticoagulation outweigh the benefits. I tend to agree. Patient had US ordered from triage eventually cancelled because he had just had a study. states that she took her to see Dr. Taveras today who referred patient to Dr. Cowan and the ER for treatment of the DVT. Review of the US from a few days ago shows non-occlusive but extensive thrombosis of the LLE. This was done with [employer]. Patient does have IVC filter in place. The patient was discussed with Dr. Willoughby who is deputy felony clerk for Dr. Kerr and Dr. Cowan the later of whom the patient is not established with. At this time , we all agree that the patient is NOT a candidate for anticoagulation given history of heavy bleeing in the past and history of hemorrhagic stroke. This was discussed with patient and his and his is unhappy with the recommendation for compression stockings and warm compress, i informed her that her is too high risk for any other intervention. She requested a second opinion. Dr. Woodward is here today and has examined the patient as well. SHe is familiar with the case, i witnessed her having very similiar conversation with patient and is ultimately agreeable. She then offered a new complaint for her which is constipation. Dr. Woodward offered enema which was delivered, patient had large non-bloody BM per nursing. He is stable for discharge. Diagnosis Primary Impression: DVT (deep venous thrombosis) Referrals: Doug Cowan MD, Zafar MD Disposition: 01 DISCHARGE HOME Condition: Stable Doug Lazo MD Jan 20, 2017 16:24
[2017-01-20 16:29] VITALS: BP 124/81; PULSE 95; RESP 20; O2SAT 100
[2017-01-20 16:51] LABS: AUTOMATED NEUTROPHIL # 6.6 TH/MM3 (1.8-7.7); BASOPHIL # 0.1 TH/MM3 (0-0.2); BASOPHIL % 0.8 % (0.0-2.0); EOSINOPHIL # 0.2 TH/MM3 (0-0.4); EOSINOPHIL % 2.2 % (0.0-4.0); HEMATOCRIT 37.8 % (39.0-51.0); HEMO FLAGS DIFF FINAL; LYMPH % 14.7 % (9.0-44.0); LYMPHOCYTE # 1.4 TH/MM3 (1.0-4.8); MEAN CELL VOLUME 102.3 FL (80.0-100.0); MEAN CORPUSCULAR HEMOGLOBIN 34.3 PG (27.0-34.0); MEAN CORPUSCULAR HGB CONC 33.6 % (32.0-36.0); MONO % 10.4 % (0.0-8.0); NEUT % 71.9 % (16.0-70.0); PLATELET COUNT 222 TH/MM3 (150-450); WHITE BLOOD COUNT 9.2 TH/MM3 (4.0-11.0)
[2017-01-20 17:07] LABS: INTERNATIONAL NORMALIZED RATIO 0.9 RATIO; PROTHROMBIN TIME - PATIENT 9.8 SEC (9.8-11.6)
[2017-01-20 17:14] LABS: BICARBONATE 31.1 MEQ/L (21.0-32.0); MAGNESIUM 2.2 MG/DL (1.5-2.5); POTASSIUM 4.5 MEQ/L (3.5-5.1)
[2017-01-20 17:58] LABS: APTT (PATIENT) 21.3 SEC (24.3-30.1)
[2017-01-20] MEDS ORDERED: SOD PHOSPHATE/SOD BIPHOSPHATE (ADULT) ENEMA 133ML RECTAL ONE (18:30)
== END 2017-01-20 19:05 | disposition home or self-care (01) ==
LOC: NEPE 15:12
DX: I82.402 Acute embolism and thrombosis of unspecified deep veins of left lower extremity (principal); I10 Essential (primary) hypertension; Z79.899 Other long term (current) drug therapy
CPT/HCPCS: 80048; 83735; 85025; 85610; 85730; 99283